=== PATIENT | male | born 1960 | race Caucasian/White ===

== ENCOUNTER 2019-05-22 11:29 | Observation (INO) | payer OTHER ==
[2019-05-22] MEDS ORDERED: SODIUM CHLORIDE 0.9% 1,000 ML IV STA (11:53)
[2019-05-22] MEDS ORDERED: SODIUM CHLORIDE 0.9% 1,000 ML with MVI, ADULT NO.4 WITH VIT K 10 ML, THIAMINE 100 MG, F... IV ONE ×4 (11:54)
--- NOTE | 2019-05-22 12:06 | ED ---
General Adult HPI - General Chief complaint: Alcohol Stated complaint: Alcohol Time Seen by Provider: 05/22/19 11:30 Source: EMS, RN notes reviewed Mode of arrival: EMS Limitations: no limitations - History of Present Illness Initial comments: This is a 59-year-old male who presents emergency Department who complains that he is intoxicated and he wants rehabilitation. Patient states he drove to [facility] and wanted to be seen. Patient did not have an appointment [facility] could not accommodate him but they could not let him drive home so they sent him to the hospital. Patient states she's unable to get a ride. Patient states he has no chest pain difficulty breathing or shortness of breath per patient denies headache patient denies numbness weakness. Patient denies any abdominal pain patient denies nausea vomiting or diarrhea. Patient states she does a past history of bypass surgery and does smoke. Patient denies any drug use. Patient denies any recent injury or trauma. - Related Data Home Medications Medication Instructions Recorded Confirmed Atorvastatin [Lipitor] 20 mg PO DAILY 05/22/19 05/22/19 Lisinopril [Zestril] 10 mg PO DAILY 05/22/19 05/22/19 Review of Systems ROS Statement: Those systems with pertinent positive or pertinent negative responses have been documented in the HPI. ROS Other: All systems not noted in ROS Statement are negative. Past Medical History Past Medical History: Unable to Obtain Additional Past Medical History / Comment(s): Pt intoxicated Past Surgical History: Unable to Obtain Additional Past Surgical History / Comment(s): Pt intoxicated Past Psychological History: Unable to Obtain, Anxiety, Depression Smoking Status: Current every day smoker Past Alcohol Use History: Heavy Past Drug Use History: None Reported General Exam - General Exam Comments Initial Comments: GENERAL: Patient is well-developed and well-nourished. Patient is nontoxic and well- hydrated and is in no acute distress. Patient appears intoxicated ENT: Neck is soft and supple. No significant lymphadenopathy is noted. Oropharynx is clear. Moist mucous membranes. Neck has full range of motion without eliciting any pain. EYES: The sclera were anicteric and conjunctiva were pink and moist. Extraocular movements were intact and pupils were equal round and reactive to light. Eyelids were unremarkable. PULMONARY: Unlabored respirations. Good breath sounds bilaterally. No audible rales rhonchi or wheezing was noted. CARDIOVASCULAR: There is a regular rate and rhythm without any murmurs gallops or rubs. ABDOMEN: Soft and nontender with normal bowel sounds. SKIN: Skin is clear with no lesions or rashes and otherwise unremarkable. NEUROLOGIC: Patient is alert and oriented x3. Cranial nerves II through XII are grossly intact. Motor and sensory are also intact. Normal speech, volume and content. Symmetrical smile. MUSCULOSKELETAL: Normal extremities with adequate strength and full range of motion. No lower extremity swelling or edema. No calf tenderness. LYMPHATICS: No significant lymphadenopathy is noted PSYCHIATRIC: Normal psychiatric evaluation. Limitations: no limitations Course Vital Signs 05/22/19 05/22/19 05/22/19 11:30 11:50 12:00 Temperature 98.0 F Pulse Rate 85 85 83 Respiratory 15 15 15 Rate Blood Pressure 111/73 111/73 111/73 O2 Sat by Pulse 95 95 96 Oximetry 05/22/19 05/22/19 05/22/19 12:30 13:00 13:30 Temperature Pulse Rate 87 89 84 Respiratory 14 16 14 Rate Blood Pressure 124/68 107/68 150/82 O2 Sat by Pulse 95 97 96 Oximetry Medical Decision Making - Medical Decision Making I spoke with Dr. Gilliland he agreed to admit the patient I admitted the patient wrote admitting orders - Lab Data Result diagrams: 05/22/19 12:38 05/22/19 12:38 Lab Results 05/22/19 05/22/19 05/22/19 Range/Units 12:38 12:38 12:38 WBC 5.5 (3.8-10.6) k/uL RBC 4.42 (4.30-5.90) m/uL Hgb 14.7 (13.0-17.5) gm/dL Hct 43.1 (39.0-53.0) % MCV 97.6 (80.0-100.0) fL MCH 33.2 (25.0-35.0) pg MCHC 34.1 (31.0-37.0) g/dL RDW 14.1 (11.5-15.5) % Plt Count 342 (150-450) k/uL Neutrophils % 58 % Lymphocytes % 30 % Monocytes % 7 % Eosinophils % 3 % Basophils % 1 % Neutrophils # 3.2 (1.3-7.7) k/uL Lymphocytes # 1.7 (1.0-4.8) k/uL Monocytes # 0.4 (0-1.0) k/uL Eosinophils # 0.2 (0-0.7) k/uL Basophils # 0.0 (0-0.2) k/uL PT 9.9 (9.0-12.0) sec INR 0.9 (<1.2) APTT 25.8 (22.0-30.0) sec Sodium 142 (137-145) mmol/L Potassium 4.4 (3.5-5.1) mmol/L Chloride 104 (98-107) mmol/L Carbon Dioxide 25 (22-30) mmol/L Anion Gap 13 mmol/L BUN 5 L (9-20) mg/dL Creatinine 0.59 L (0.66-1.25) mg/dL Est GFR (CKD-EPI)AfAm >90 (>60 ml/min/1.73 sqM) Est GFR (CKD-EPI)NonAf >90 (>60 ml/min/1.73 sqM) Glucose 101 H (74-99) mg/dL Calcium 9.1 (8.4-10.2) mg/dL Magnesium 2.2 (1.6-2.3) mg/dL Total Bilirubin 0.4 (0.2-1.3) mg/dL AST 55 (17-59) U/L ALT 43 (21-72) U/L Alkaline Phosphatase 74 (38-126) U/L Total Protein 8.1 (6.3-8.2) g/dL Albumin 4.5 (3.5-5.0) g/dL Serum Alcohol 233 H* mg/dL Disposition Clinical Impression: Alcoholic intoxication Disposition: ADMITTED IP TO THIS HOSP Referrals: None,Stated [Primary Care Provider] - 1-2 days Time of Disposition: 14:52
[2019-05-22 13:07] LABS: Basophils % (A) 1 %; Eosinophils # (A) 0.2 k/uL (0-0.7); Eosinophils % (A) 3 %; HCT 43.1 % (39.0-53.0); HGB 14.7 gm/dL (13.0-17.5); Lymphocytes # (A) 1.7 k/uL (1.0-4.8); Lymphocytes % (A) 30 %; MCH 33.2 pg (25.0-35.0); MCHC 34.1 g/dL (31.0-37.0); MCV 97.6 fL (80.0-100.0); Mean Platelet Volume 6.5; Monocytes # (A) 0.4 k/uL (0-1.0); Monocytes % (A) 7 %; Neutrophils # (A) 3.2 k/uL (1.3-7.7); Neutrophils % (A) 58 %; Platelet Count 342 k/uL (150-450); RBC 4.42 m/uL (4.30-5.90); RDW 14.1 % (11.5-15.5); WBC 5.5 k/uL (3.8-10.6)
[2019-05-22 13:13] LABS: INR 0.9 (<1.2); Partial Thromboplastin Time 25.8 sec (22.0-30.0); Prothrombin Time 9.9 sec (9.0-12.0)
[2019-05-22 13:20] LABS: ALT 43 U/L (21-72); AST 55 U/L (17-59); African American GFR (CKD) >90 (>60 ml/min/1.73 sqM); Albumin 4.5 g/dL (3.5-5.0); Alkaline Phosphatase 74 U/L (38-126); Anion Gap 13 mmol/L; Blood Urea Nitrogen 5 mg/dL (9-20); Calcium 9.1 mg/dL (8.4-10.2); Carbon Dioxide 25 mmol/L (22-30); Chloride 104 mmol/L (98-107); Glucose 101 mg/dL (74-99); Magnesium 2.2 mg/dL (1.6-2.3); Non-African American GFR(CKD) >90 (>60 ml/min/1.73 sqM); Potassium 4.4 mmol/L (3.5-5.1); Sodium 142 mmol/L (137-145); Total Bilirubin 0.4 mg/dL (0.2-1.3); Total Protein 8.1 g/dL (6.3-8.2)
[2019-05-22 13:31] LABS: Alcohol 233 mg/dL
[2019-05-22] MEDS ORDERED: LORazepam 2 MG/ML INJ IV PRN ×3 (16:07)
[2019-05-22] MEDS ORDERED: THIAMINE 100 MG/ML 2 ML VIAL IM STA (16:07)
[2019-05-22] MEDS ORDERED: HYDROcodone/APAP 5-325MG 1 EACH TAB PO PRN (16:08)
[2019-05-22] MEDS ORDERED: TEMAZEPAM 15 MG CAP PO PRN (16:08)
[2019-05-22] MEDS ORDERED: ALPRAZolam 0.25 MG TAB PO PRN (16:08)
[2019-05-22] MEDS: HEPARIN SODIUM,PORCINE 5,000 UNIT/ML 1 ML VIAL SQ SCH (20:31)
[2019-05-22] MEDS: NICOTINE 14MG/24HR PATCH TRANSDERM SCH (20:31)
--- NOTE | 2019-05-22 20:31 | XR ---
EXAMINATION TYPE: XR chest 1V portable DATE OF EXAM: 05/22/2019 COMPARISON: NONE HISTORY: Short of breath TECHNIQUE: Single frontal view of the chest is obtained. FINDINGS: There is no heart failure nor confluent pneumonic infiltrate. Thoracic aorta is atheromato us. There are sternal wires. There is some coarsening of interstitial markings. IMPRESSION: Mild pulmonary fibrotic changes. No heart failure.
--- NOTE | 2019-05-22 22:37 | HP ---
HISTORY AND PHYSICAL DATE OF SERVICE: 05/22/2019 CHIEF COMPLAINT: Alcohol intoxication. HISTORY OF PRESENT ILLNESS: This 59-year-old gentleman with a past medical history of hypertension, hyperlipidemia, history of restless legs syndrome, history of CAD, CABG, stent, being followed by a primary physician in the [place] area, apparently had a significant history of EtOH. The patient and his female friend apparently drove to [facility], but because of alcohol intake/intoxication, the patient was sent to [facility] for further evaluation and treatment. His alcohol was found to be 233. The patient was admitted for further evaluation and treatment. There is no history of any fever, rigor or chills. No history of headache, loss of consciousness, seizures at this time. PAST MEDICAL HISTORY: 1. History of hyperlipidemia. 2. Hypertension. 3. Restless leg syndrome. 4. CAD, CABG, stent. HOME MEDICATIONS: 1. Zestril 10 mg p.o. daily. 2. Lipitor 20 mg daily. ALLERGIES: NONE. FAMILY HISTORY: No history of heart disease or strokes in the family. SOCIAL HISTORY: History of smoking, heavy alcohol intake. REVIEW OF SYSTEMS: ENT: No diminished hearing. No diminished vision. CARDIOVASCULAR SYSTEM: As mentioned earlier. RESPIRATORY SYSTEM: As mentioned earlier. GI: No nausea, vomiting. : No dysuria or retention. NERVOUS SYSTEM: No numbness, weakness. ALLERGY/IMMUNOLOGY: No asthma, hayfever. MUSCULOSKELETAL: As mentioned earlier. HEMATOLOGY/ONCOLOGY: No history of anemia. ENDOCRINE: No history of diabetes, hypothyroidism. CONSTITUTIONAL: As mentioned earlier. DERMATOLOGY: Negative. RHEUMATOLOGY: Negative. PSYCHIATRY: As mentioned earlier. PHYSICAL EXAMINATION: Patient alert and oriented x3. Pulse 80, blood pressure 126/66, respirations 16, temperature 98.2, pulse ox 94% on room air. HEENT: Conjunctivae normal. NECK: No jugular venous distention. CARDIOVASCULAR SYSTEM: S1, S2 muffled. RESPIRATORY SYSTEM: Breath sounds diminished at the bases. A few scattered rhonchi and crackles. ABDOMEN: Soft. Non-tender. No mass palpable. LEGS: No edema. No swelling. NERVOUS SYSTEM: Minimal tremors present. Otherwise no focal deficit. SKIN: No ulcer, rash, bleeding. JOINTS: No active deforming arthropathy. LABS: CBC within normal limits. Glucose 101. Alcohol noted. ASSESSMENT: 1. Acute alcohol intoxication as well as early delirium tremens. 2. Hypertension. 3. Hyperlipidemia. 4. History of restless legs syndrome. 5. History of coronary artery disease, coronary artery bypass grafting. 6. Coronary artery disease, stent. 7. Anxiety, depression. 8. History of nicotine dependence. RECOMMENDATIONS AND DISCUSSION: In this 59-year-old gentleman who presented with multiple medical problems, we will monitor the patient closely, continue the current management, continue symptomatic treatment. Otherwise at this time I recommend [facility] protocol. Monitor closely. DT precautions and prophylaxis. Supplement vitamins. Guarded prognosis because of multiple complex medical issues. Further recommendations to follow. See orders for further details. Once the patient is stabilized, the patient will be discharged to [place]. F social media marketing analyst and Case Management to follow. JUANCARLOS / NEO: [id number] /
[2019-05-23] MEDS: ATORVASTATIN 20 MG TAB PO SCH (07:39)
[2019-05-23] MEDS: HEPARIN SODIUM,PORCINE 5,000 UNIT/ML 1 ML VIAL SQ SCH ×2 (07:39→20:22)
[2019-05-23] MEDS: PANTOPRAZOLE 40 MG/10 ML VIAL IVP SCH (07:39)
[2019-05-23] MEDS: THIAMINE 100 MG TAB PO SCH ×2 (07:39→15:30)
[2019-05-23] MEDS: LISINOPRIL 10 MG TAB PO SCH (07:39)
[2019-05-23] MEDS: NICOTINE 14MG/24HR PATCH TRANSDERM SCH (07:40)
[2019-05-23 08:01] LABS: Basophils # (A) 0.1 k/uL (0-0.2); Basophils % (A) 2 %; Eosinophils # (A) 0.2 k/uL (0-0.7); Eosinophils % (A) 4 %; HCT 43.9 % (39.0-53.0); HGB 14.6 gm/dL (13.0-17.5); Lymphocytes # (A) 1.3 k/uL (1.0-4.8); Lymphocytes % (A) 22 %; MCH 32.6 pg (25.0-35.0); MCHC 33.3 g/dL (31.0-37.0); MCV 97.9 fL (80.0-100.0); Mean Platelet Volume 6.7; Monocytes # (A) 0.4 k/uL (0-1.0); Monocytes % (A) 7 %; Neutrophils # (A) 3.6 k/uL (1.3-7.7); Neutrophils % (A) 64 %; Platelet Count 331 k/uL (150-450); RBC 4.48 m/uL (4.30-5.90); WBC 5.7 k/uL (3.8-10.6)
[2019-05-23 08:13] LABS: Appearance,Urine Clear (Clear); Bilirubin,Urine Negative (Negative); Blood,Urine Negative (Negative); Color,Urine Light Yellow; Glucose,Urine (UA) Negative (Negative); Ketones,Urine Negative (Negative); Leukocyte Esterase,Urine Negative (Negative); Nitrite,Urine Negative (Negative); PH, Urine 6.5 (5.0-8.0); Protein,Urine Negative (Negative); Specific Gravity,Urine 1.009 (1.001-1.035); Urobilinogen,Urine <2.0 mg/dL (<2.0)
[2019-05-23 08:18] LABS: African American GFR (CKD) >90 (>60 ml/min/1.73 sqM); Anion Gap 9 mmol/L; Blood Urea Nitrogen 9 mg/dL (9-20); Calcium 9.1 mg/dL (8.4-10.2); Carbon Dioxide 25 mmol/L (22-30); Chloride 106 mmol/L (98-107); Glucose 100 mg/dL (74-99); Non-African American GFR(CKD) >90 (>60 ml/min/1.73 sqM); Potassium 3.9 mmol/L (3.5-5.1); Sodium 140 mmol/L (137-145)
[2019-05-23] MEDS ORDERED: cloNIDine HCL 0.1 MG TAB PO PRN (15:55)
[2019-05-23] MEDS: cloNIDine HCL 0.1 MG TAB PO SCH ×2 (16:09→20:22)
--- NOTE | 2019-05-23 18:06 | PN ---
PROGRESS NOTE DATE OF SERVICE: 05/23/2019 This 59-year-old gentleman who was admitted with significant alcohol intoxication is being closely monitored. The patient also had features of early delirium tremens. No chest pain. No palpitations. No fever. Patient is slightly tremulous. PHYSICAL EXAMINATION: Alert and oriented x3. Pulse 86, blood pressure 172/81, respiration 18, temperature 98.4, pulse ox 97% on room air. HEENT: Conjunctivae normal. NECK: No jugular venous distention. CARDIOVASCULAR SYSTEM: S1, S2 muffled. RESPIRATORY SYSTEM: Breath sounds diminished at the bases. Scattered rhonchi and crackles. ABDOMEN: Soft, non-tender. LEGS: No edema. No swelling. NERVOUS SYSTEM: No focal deficit. LABS: CBC within normal limits. Glucose 100. ASSESSMENT: 1. Acute alcohol intoxication as well as early delirium tremens. 2. Change in mental status, acute metabolic encephalopathy, multifactorial. 3. Hypertension. 4. Hyperlipidemia. 5. History of restless legs syndrome. 6. History of coronary artery disease, coronary artery bypass grafting. 7. Coronary artery disease, stent. 8. Anxiety, depression. 9. History of nicotine dependence. RECOMMENDATIONS AND DISCUSSION: I recommend to continue current medications, continue with the monitoring, symptomatic treatment. Continue [facility] protocol. Otherwise, clonidine. Continue the rest of the medications. shipping manager and social studies teacher to arrange for [facility] when stable within the next 24 hours, possibly. Further recommendations to follow. MMMEDL / IJN: [id number] /
[2019-05-24 05:04] VITALS: BP 158/91; PULSE 74; RESP 17; TEMP 97.9
[2019-05-24] MEDS: THIAMINE 100 MG TAB PO SCH (09:06)
[2019-05-24] MEDS: NICOTINE 14MG/24HR PATCH TRANSDERM SCH (09:06)
[2019-05-24] MEDS: LISINOPRIL 10 MG TAB PO SCH (09:06)
[2019-05-24] MEDS: HEPARIN SODIUM,PORCINE 5,000 UNIT/ML 1 ML VIAL SQ SCH (09:06)
[2019-05-24] MEDS: cloNIDine HCL 0.1 MG TAB PO SCH (09:06)
[2019-05-24] MEDS: ATORVASTATIN 20 MG TAB PO SCH (09:06)
[2019-05-24] MEDS: PANTOPRAZOLE 40 MG/10 ML VIAL IVP SCH (09:06)
[2019-05-24 09:43] LABS: African American GFR (CKD) >90 (>60 ml/min/1.73 sqM); Anion Gap 10 mmol/L; Blood Urea Nitrogen 9 mg/dL (9-20); Calcium 9.4 mg/dL (8.4-10.2); Carbon Dioxide 24 mmol/L (22-30); Chloride 105 mmol/L (98-107); Glucose 160 mg/dL (74-99); Non-African American GFR(CKD) >90 (>60 ml/min/1.73 sqM); Sodium 139 mmol/L (137-145)
[2019-05-24 09:45] LABS: Basophils % (A) 1 %; Eosinophils # (A) 0.2 k/uL (0-0.7); Eosinophils % (A) 4 %; HCT 44.6 % (39.0-53.0); HGB 14.8 gm/dL (13.0-17.5); Lymphocytes # (A) 1.3 k/uL (1.0-4.8); Lymphocytes % (A) 25 %; MCH 32.8 pg (25.0-35.0); MCHC 33.3 g/dL (31.0-37.0); MCV 98.4 fL (80.0-100.0); Mean Platelet Volume 7.3; Monocytes # (A) 0.2 k/uL (0-1.0); Monocytes % (A) 4 %; Neutrophils # (A) 3.3 k/uL (1.3-7.7); Neutrophils % (A) 65 %; Platelet Count 324 k/uL (150-450); RBC 4.53 m/uL (4.30-5.90); RDW 15.2 % (11.5-15.5); WBC 5.1 k/uL (3.8-10.6)
--- NOTE | 2019-05-25 03:06 | DS ---
DISCHARGE SUMMARY DATE OF SERVICE: 05/24/2019. FINAL DIAGNOSES: 1. Acute alcohol intoxication as well as early delirium tremens. 2. Change in mental status secondary to acute metabolic encephalopathy multifactorial. 3. Hypertension. 4. Hyperlipidemia. 5. History of restless legs syndrome. 6. History of coronary artery disease, coronary artery bypass grafting. 7. History of coronary artery disease, stent. 8. History of anxiety, depression. 9. History of nicotine dependence. DISCHARGE DISPOSITION: The patient being discharged in stable condition with guarded prognosis. HISTORY OF PRESENT ILLNESS: This 59-year-old gentleman with a past medical history of multiple medical problems, was admitted with acute alcohol intoxication as well as delirium tremens. The patient was treated symptomatically. Patient improved significantly. Patient was supposed to go to [facility] apparently. He and his friend showed up at [facility] with alcohol level more than 200 at the time of admission. On exam, vitals are stable. Cardiovascular: S1, S2. Abdomen soft. Nervous System: No focal deficits. DISCHARGE ADVICE AND MEDICATIONS: 1. Diet is cardiac diet. 2. Activity limited until followup. 3. Followup with primary physician in 1-2 days. 4. Stop alcohol. 5. Rehab. DISCHARGE MEDICATIONS: 1. Lipitor 20 mg. 2. Zestril 10 mg. 3. Catapres 0.1 p.o. t.i.d. 4. Habitrol 14 daily. To attend AA meetings and alcohol rehab. JUANCARLOS / NEO: [id number] /
[2019-05-25] MEDS ORDERED: PANTOPRAZOLE 40 MG TABLET PO SCH (07:30)
== END 2019-05-24 13:22 | disposition home or self-care (01) ==
LOC: EC 11:29 → 4MS4W 14:52
PROVIDERS: ADMIT Hospitalist; ATTEND Hospitalist
DX: F10.221 Alcohol dependence with intoxication delirium (principal); G93.41 Metabolic encephalopathy; I10 Essential (primary) hypertension; I25.10 Atherosclerotic heart disease of native coronary artery without angina pectoris; F41.9 Anxiety disorder, unspecified; F32.9 Major depressive disorder, single episode, unspecified; G25.81 Restless legs syndrome; Y90.7 Blood alcohol level of 200-239 mg/100 ml; E78.5 Hyperlipidemia, unspecified; F17.200 Nicotine dependence, unspecified, uncomplicated; Z79.899 Other long term (current) drug therapy; Z95.5 Presence of coronary angioplasty implant and graft; Z95.1 Presence of aortocoronary bypass graft
CPT/HCPCS: 96366 ×3; 96372 ×4; 96375; 96365; 99285; 36415; 80053; 80048 ×2; 83735; 85025 ×3; 85610; 85730; 81003; 71045; G0378 ×3; G0480; S4990 ×2; J2060; J1644 ×3; J3411; C9113 ×2; 80320

== ENCOUNTER 2022-03-25 14:32 | Inpatient (IN) | payer MEDICARE, OTHER ==
[2022-03-25] MEDS ORDERED: ASPIRIN 81 MG PO STA (14:55)
[2022-03-25] MEDS ORDERED: NITROGLYCERIN OINT 1 INCH/GM PACKET TOPICAL STA (14:55)
[2022-03-25] MEDS ORDERED: SODIUM CHLORIDE 0.9% 1,000 ML IV STA (14:55)
[2022-03-25 15:15] LABS: Basophils % (A) 1 %; Eosinophils # (A) 0.1 k/uL (0-0.7); Eosinophils % (A) 2 %; HCT 41.7 % (39.0-53.0); HGB 14.4 gm/dL (13.0-17.5); Lymphocytes # (A) 1.5 k/uL (1.0-4.8); Lymphocytes % (A) 33 %; MCH 34.4 pg (25.0-35.0); MCHC 34.5 g/dL (31.0-37.0); MCV 99.7 fL (80.0-100.0); Mean Platelet Volume 8.3; Monocytes # (A) 0.2 k/uL (0-1.0); Monocytes % (A) 4 %; Neutrophils # (A) 2.7 k/uL (1.3-7.7); Neutrophils % (A) 60 %; Platelet Count 106 k/uL (150-450); RBC 4.19 m/uL (4.30-5.90); RDW 12.9 % (11.5-15.5); WBC 4.5 k/uL (3.8-10.6)
[2022-03-25 15:20] LABS: Partial Thromboplastin Time 25.6 sec (22.0-30.0); Prothrombin Time 11.3 sec (9.0-12.0)
[2022-03-25 15:25] LABS: ALT 100 U/L (4-49); AST 152 U/L (17-59); African American GFR (CKD) >90 (>60 ml/min/1.73 sqM); Albumin 3.9 g/dL (3.5-5.0); Alkaline Phosphatase 98 U/L (38-126); Anion Gap 13 mmol/L; Blood Urea Nitrogen 3 mg/dL (9-20); Calcium 8.2 mg/dL (8.4-10.2); Carbon Dioxide 21 mmol/L (22-30); Chloride 106 mmol/L (98-107); Glucose 153 mg/dL (74-99); Magnesium 1.6 mg/dL (1.6-2.3); Non-African American GFR(CKD) >90 (>60 ml/min/1.73 sqM); Potassium 2.9 mmol/L (3.5-5.1); Sodium 140 mmol/L (137-145); Total Bilirubin 0.7 mg/dL (0.2-1.3); Total Protein 6.8 g/dL (6.3-8.2)
--- NOTE | 2022-03-25 15:25 | ED ---
General Adult HPI - General Chief complaint: Chest Pain Stated complaint: chest pain Time Seen by Provider: 03/25/22 14:45 Source: patient, RN notes reviewed, old records reviewed Mode of arrival: ambulatory Limitations: no limitations - History of Present Illness Initial comments: This is a 62-year-old male who presents emergency department with chest pains intermittently 4 days. Patient states she's no colicky was going to [place] to go to into rehab however on the way [place] states she was drinking. Patient got there complained about chest pain and EMS was called. EMS states that the patient had a heart rate in the 161 time they gave him a liter of fluid and heart rate came back down to under 100. Patient states he has no chest pain currently. Patient did have shortness of breath earlier with the chest pain. Patient denies any diaphoretic episodes. Patient denies any nausea vomiting. Patient denies any abdominal pain. Patient denies any recent injury or trauma. - Related Data Home Medications Medication Instructions Recorded Confirmed Atorvastatin [Lipitor] 20 mg PO DAILY 05/22/19 05/22/19 lisinopriL [Zestril] 10 mg PO DAILY 05/22/19 05/22/19 Previous Rx's Medication Instructions Recorded Nicotine 14Mg/24Hr Patch [Habitrol] 1 patch TRANSDERM DAILY #30 patch 05/24/19 cloNIDine HCL [Catapres] 0.1 mg PO TID #90 tab 05/24/19 Allergies Allergy/AdvReac Type Severity Reaction Status Date / Time No Known Allergies Allergy Verified 03/25/22 14:39 Review of Systems ROS Statement: Those systems with pertinent positive or pertinent negative responses have been documented in the HPI. ROS Other: All systems not noted in ROS Statement are negative. Past Medical History Past Medical History: Hyperlipidemia, Hypertension Additional Past Medical History / Comment(s): RLS History of Any Multi-Drug Resistant Organisms: None Reported Past Surgical History: Coronary Bypass/CABG, Heart Catheterization With Stent Additional Past Surgical History / Comment(s): Pt intoxicated Past Anesthesia/Blood Transfusion Reactions: No Reported Reaction Date of Last Stent Placement:: 2017 Past Psychological History: Unable to Obtain, Anxiety, Depression Smoking Status: Current every day smoker Past Alcohol Use History: Heavy Past Drug Use History: Marijuana General Exam - General Exam Comments Initial Comments: GENERAL: Patient is well-developed and well-nourished. Patient is nontoxic and well- hydrated and is in patient does appear intoxicated no acute distress. ENT: Neck is soft and supple. No significant lymphadenopathy is noted. Oropharynx is clear. Moist mucous membranes. Neck has full range of motion without eliciting any pain. EYES: The sclera were anicteric and conjunctiva were pink and moist. Extraocular movements were intact and pupils were equal round and reactive to light. Eyelids were unremarkable. PULMONARY: Unlabored respirations. Good breath sounds bilaterally. No audible rales rhonchi or wheezing was noted. CARDIOVASCULAR: Slightly tachycardic with an irregular rate. ABDOMEN: Soft and nontender with normal bowel sounds. SKIN: Skin is clear with no lesions or rashes and otherwise unremarkable. NEUROLOGIC: Patient is alert and oriented x3. Cranial nerves II through XII are grossly intact. Motor and sensory are also intact. Normal speech, volume and content. Symmetrical smile. MUSCULOSKELETAL: Normal extremities with adequate strength and full range of motion. 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 Patient's EKG shows no ST segment elevation or depression. Chest x-ray shows no acute abnormality. Patient's troponin was elevated and patient's alcohol was 291. I spoke with some physicians agreed to admit the patient admitted the patient wrote admitting orders I consulted cardiology. She was also placed on the [facility] protocol. - Lab Data Result diagrams: 03/25/22 14:58 03/25/22 14:58 Lab Results 03/25/22 03/25/22 03/25/22 Range/Units 14:58 14:58 14:58 WBC 4.5 (3.8-10.6) k/uL RBC 4.19 L (4.30-5.90) m/uL Hgb 14.4 (13.0-17.5) gm/dL Hct 41.7 (39.0-53.0) % MCV 99.7 (80.0-100.0) fL MCH 34.4 (25.0-35.0) pg MCHC 34.5 (31.0-37.0) g/dL RDW 12.9 (11.5-15.5) % Plt Count 106 L (150-450) k/uL MPV 8.3 Neutrophils % 60 % Lymphocytes % 33 % Monocytes % 4 % Eosinophils % 2 % Basophils % 1 % Neutrophils # 2.7 (1.3-7.7) k/uL Lymphocytes # 1.5 (1.0-4.8) k/uL Monocytes # 0.2 (0-1.0) k/uL Eosinophils # 0.1 (0-0.7) k/uL Basophils # 0.0 (0-0.2) k/uL PT 11.3 (9.0-12.0) sec INR 1.0 (<1.2) APTT 25.6 (22.0-30.0) sec Sodium 140 (137-145) mmol/L Potassium 2.9 L (3.5-5.1) mmol/L Chloride 106 (98-107) mmol/L Carbon Dioxide 21 L (22-30) mmol/L Anion Gap 13 mmol/L BUN 3 L (9-20) mg/dL Creatinine 0.71 (0.66-1.25) mg/dL Est GFR (CKD-EPI)AfAm >90 (>60 ml/min/1.73 sqM) Est GFR (CKD-EPI)NonAf >90 (>60 ml/min/1.73 sqM) Glucose 153 H (74-99) mg/dL Calcium 8.2 L (8.4-10.2) mg/dL Magnesium 1.6 (1.6-2.3) mg/dL Total Bilirubin 0.7 (0.2-1.3) mg/dL AST 152 H (17-59) U/L ALT 100 H (4-49) U/L Alkaline Phosphatase 98 (38-126) U/L Troponin I (0.000-0.034) ng/mL Total Protein 6.8 (6.3-8.2) g/dL Albumin 3.9 (3.5-5.0) g/dL Serum Alcohol 291 H* mg/dL 03/25/22 Range/Units 14:58 WBC (3.8-10.6) k/uL RBC (4.30-5.90) m/uL Hgb (13.0-17.5) gm/dL Hct (39.0-53.0) % MCV (80.0-100.0) fL MCH (25.0-35.0) pg MCHC (31.0-37.0) g/dL RDW (11.5-15.5) % Plt Count (150-450) k/uL MPV Neutrophils % % Lymphocytes % % Monocytes % % Eosinophils % % Basophils % % Neutrophils # (1.3-7.7) k/uL Lymphocytes # (1.0-4.8) k/uL Monocytes # (0-1.0) k/uL Eosinophils # (0-0.7) k/uL Basophils # (0-0.2) k/uL PT (9.0-12.0) sec INR (<1.2) APTT (22.0-30.0) sec Sodium (137-145) mmol/L Potassium (3.5-5.1) mmol/L Chloride (98-107) mmol/L Carbon Dioxide (22-30) mmol/L Anion Gap mmol/L BUN (9-20) mg/dL Creatinine (0.66-1.25) mg/dL Est GFR (CKD-EPI)AfAm (>60 ml/min/1.73 sqM) Est GFR (CKD-EPI)NonAf (>60 ml/min/1.73 sqM) Glucose (74-99) mg/dL Calcium (8.4-10.2) mg/dL Magnesium (1.6-2.3) mg/dL Total Bilirubin (0.2-1.3) mg/dL AST (17-59) U/L ALT (4-49) U/L Alkaline Phosphatase (38-126) U/L Troponin I 0.085 H* (0.000-0.034) ng/mL Total Protein (6.3-8.2) g/dL Albumin (3.5-5.0) g/dL Serum Alcohol mg/dL Disposition Clinical Impression: Chest pain, Elevated troponin, Alcohol intoxication Disposition: ADMITTED IP TO THIS [facility] Referrals: None,Stated [Primary Care Provider] - 1-2 days Time of Disposition: 16:05
[2022-03-25 15:37] LABS: Alcohol 291 mg/dL
--- NOTE | 2022-03-25 15:51 | XR ---
EXAMINATION TYPE: XR chest 2V DATE OF EXAM: 03/25/2022 COMPARISON: Chest x-ray 05/22/2019 HISTORY: Chest pain TECHNIQUE: Frontal and lateral views of the chest are obtained. FINDINGS: There is no focal air space opacity, pleural effusion, or pneumothorax seen. The cardiac silhouette size is within normal limits. Patient is post median sternotomy. Aorta is dense. There are overlying leads. The osseous structures are intact. IMPRESSION: No acute cardiopulmonary process.
[2022-03-25] MEDS ORDERED: NITROGLYCERIN SL TABS 0.4 MG TAB SUBLINGUAL PRN (16:05)
[2022-03-25] MEDS ORDERED: LORazepam 2 MG/ML INJ IV PRN ×3 (16:08)
[2022-03-25] MEDS ORDERED: THIAMINE 100 MG/ML 2 ML VIAL IM STA (16:08)
[2022-03-25] MEDS ORDERED: LORazepam 1 MG TAB PO PRN ×2 (16:12)
[2022-03-25] MEDS ORDERED: POTASSIUM CHLORIDE ER 20 MEQ TAB.ER PO STA (16:25)
--- NOTE | 2022-03-25 16:26 | P.HPIM ---
History of Present Illness H&P Date: 03/25/22 History of Presenting Illness: Patient is a 62-year-old male with a past medical history of CAD status post CABG x4 in 2013, hypertension, hyperlipidemia, alcoholism drinking a reported 4- 5 "tall boys" per day, nicotine dependence, and cannabis use. Patient presented to the emergency department with a chief complaint of intermittent chest pain 4 days and alcohol intoxication. Patient was reportedly going to [place] for rehab as he decided he wanted to quit drinking but was found to be intoxicated and sent to the emergency department for detox and EMS was called for transfer to our facility. EMS reports upon their arrival they found the pat ient with a heart rate of 160 bpm. The reportedly gave the patient a 1 L bolus of fluid resulting in significant improvement of his heart rate back down to 100. Upon arrival to the emergency department, EKG was completed revealing sinus tachycardia with heart rate of 108 bpm. CBC unremarkable with the exception of thrombocytopenia with platelet count of 106. CMP revealing hypokalemia with potassium of 2.9, hypomagnesemia with magnesium of 1.6, and elevated liver enzymes with AST of 152 and ALT of 100. Troponin elevated at 0.085 and serum alcohol level of 291. Patient admitted under our services with consultation to cardiology. Patient was seen and fully evaluated at the bedside. Patient reports pain intermittently to left anterior chest described as a sharp sensation. He denies radiation of this pain or any associated factors including dizziness, lightheadedness, diaphoresis, nausea, vomiting, palpitations, shortness of breath, exertional dyspnea, or experiencing any numbness/tingling/weakness/swelling in his extremities. Patient does report to drinking daily at least 4-5 tall boys per day. In addition patient reports smoking approximately 1/4-1/2 pack of cigarettes per day as well as occasional marijuana use. Patient reports that he had his cardiac bypass in 2013 at [facility] and he was supposed to be taking medication for his blood pressure and cholesterol, however he has not followed up with a sheeting puller or a PCP. Review of systems: Pertinent positives and negatives as discussed in HPI, a complete review of systems was performed and all other systems are negative. Physical exam: Vital signs reviewed and stable. General: Nontoxic, no distress and appears stated age. Derm: Skin warm and dry, normal coloration for ethnicity. Head: Atraumatic, normocephalic and symmetric. Eyes: EOMs intact, no lid lag, and anicteric sclera Mouth: no lip lesions, mucus membranes moist Cardiovascular: Tachycardic rate with a regular rhythm with normal S1S2, systolic murmur, positive posterior tibial pulses bilaterally, and cap refill < 2 seconds. Lungs: Respirations even, regular, and unlabored on room air. Lungs diminished with mild soft expiratory wheezes, no crackles, rales, or rhonchi noted. Abdominal: soft, nontender to palpation, no guarding, no appreciable organomegaly Ext: ROM intact. No gross muscle atrophy, no edema, no contractures Neuro: Speech clear, face symmetrical and CN II-XII grossly intact with no noted focal neuro deficits Psych: Alert and oriented to person, place, time, and situation. Appropriate and pleasant affect. Assessment and Plan of Care: Chest pain, rule out acute coronary event Elevated troponins, possible demand ischemia secondary to tachycardic rate Tachycardia History of CAD status post CABG Hypertension Hyperlipidemia -Cardiology consult, appreciate further recommendations -Heparin infusion -Telemetry monitoring -Trend troponins -Cardiac diet, NPO at midnight -Started patient on daily Aspirin, atorvastatin, and metoprolol -Lipid profile with a.m. labs. -Echocardiogram Alcohol intoxication an active alcoholic -CIWA Protocol with symptom triggered medication management with benzod iazepines. -Banana bag 1 dose followed by continuous IV hydration. -Thiamine 100 mg twice a day -Multivitamin daily -Folate 1 mg daily -Seizure, fall, aspiration, and elopement precautions in place. -Urine drug screen -Continued close monitoring of electrolytes and replace as needed. -Telemetry monitoring. Hypomagnesemia Hypokalemia -Replaced. We will continue to monitor with repeat a.m. labs. Nicotine dependence -Recommend smoking cessation. The patient is admitted with an anticipated greater than 2 midnight stay for evaluation of Elevated troponins, chest pain CODE STATUS: Full code DVT prophylaxis: Heparin Discussed with: patient and RN Anticipated discharge date: Clinical course to determine Anticipated discharge place: Home A total of 43 minutes was spent on the care of this complex patient more than 50% of the time was spent in counseling and care coordination. Past Medical History Past Medical History: Hyperlipidemia, Hypertension Additional Past Medical History / Comment(s): RLS History of Any Multi-Drug Resistant Organisms: None Reported Past Surgical History: Coronary Bypass/CABG, Heart Catheterization With Stent Additional Past Surgical History / Comment(s): Pt intoxicated Past Anesthesia/Blood Transfusion Reactions: No Reported Reaction Date of Last Stent Placement:: 2017 Past Psychological History: Unable to Obtain, Anxiety, Depression Smoking Status: Current every day smoker Past Alcohol Use History: Heavy Past Drug Use History: Marijuana Medications and Allergies Home Medications Medication Instructions Recorded Confirmed Type No Known Home Medications 03/25/22 03/25/22 History Allergies Allergy/AdvReac Type Severity Reaction Status Date / Time No Known Allergies Allergy Verified 03/25/22 16:27 Physical Exam Vitals: Vital Signs Temp Pulse Pulse Resp BP Pulse Ox 03/25/22 14:51 110 H 03/25/22 14:37 98 F 91 20 109/80 98 Intake and Output 03/25/22 03/25/22 03/25/22 06:59 14:59 22:59 Other: Weight 79.379 kg Results CBC & Chem 7: 03/25/22 14:58 03/25/22 14:58 Labs: Abnormal Lab Results - Last 24 Hours (Table) 03/25/22 03/25/22 03/25/22 Range/Units 14:58 14:58 14:58 RBC 4.19 L (4.30-5.90) m/uL Plt Count 106 L (150-450) k/uL Potassium 2.9 L (3.5-5.1) mmol/L Carbon Dioxide 21 L (22-30) mmol/L BUN 3 L (9-20) mg/dL Glucose 153 H (74-99) mg/dL Calcium 8.2 L (8.4-10.2) mg/dL AST 152 H (17-59) U/L ALT 100 H (4-49) U/L Troponin I 0.085 H* (0.000-0.034) ng/mL Serum Alcohol 291 H* mg/dL
[2022-03-25] MEDS: ATORVASTATIN 80 MG TAB PO SCH (17:44)
[2022-03-25] MEDS: NITROGLYCERIN OINT 1 INCH/GM PACKET TOPICAL SCH (17:45)
[2022-03-25] MEDS: MAGNESIUM SULFATE-D5W PMX 1 GM in DEXTROSE/WATER 1 100ML.BAG IVPB SCH ×2 (17:46→18:35)
[2022-03-25] MEDS ORDERED: HEPARIN SODIUM 1,000 UN/ML (10ML VL) IV ONE (18:55)
[2022-03-25] MEDS ORDERED: HEPARIN SODIUM 1,000 UN/ML (10ML VL) IV PRN (18:55)
[2022-03-25 20:20] LABS: Prothrombin Time 11.1 sec (9.0-12.0)
[2022-03-25] MEDS: HEPARIN SOD,PORK IN 0.45% NACL 25,000 UNIT in 0.45% NACL 1 250ML.BAG IV SCH (20:47)
[2022-03-25] MEDS ORDERED: METOPROLOL TARTRATE 25 MG TAB PO SCH (21:00)
[2022-03-26] MEDS ORDERED: HEPARIN SODIUM,PORCINE/PF 5,000 UNIT/0.5 ML SYRINGE SQ SCH
[2022-03-26] MEDS: NITROGLYCERIN OINT 1 INCH/GM PACKET TOPICAL SCH ×2 (00:22→06:56)
[2022-03-26 04:25] LABS: HCT 42.5 % (39.0-53.0); HGB 14.5 gm/dL (13.0-17.5); MCH 34.1 pg (25.0-35.0); MCHC 34.1 g/dL (31.0-37.0); MCV 100.1 fL (80.0-100.0); Mean Platelet Volume 8.7; RBC 4.24 m/uL (4.30-5.90); RDW 12.9 % (11.5-15.5); WBC 6.5 k/uL (3.8-10.6)
[2022-03-26 04:44] LABS: ALT 109 U/L (4-49); AST 171 U/L (17-59); African American GFR (CKD) >90 (>60 ml/min/1.73 sqM); Albumin 3.9 g/dL (3.5-5.0); Alkaline Phosphatase 114 U/L (38-126); Anion Gap 8 mmol/L; Blood Urea Nitrogen 2 mg/dL (9-20); Calcium 8.1 mg/dL (8.4-10.2); Carbon Dioxide 26 mmol/L (22-30); Chloride 104 mmol/L (98-107); Glucose 99 mg/dL (74-99); Magnesium 1.7 mg/dL (1.6-2.3); Non-African American GFR(CKD) >90 (>60 ml/min/1.73 sqM); Potassium 3.2 mmol/L (3.5-5.1); Sodium 138 mmol/L (137-145); Total Bilirubin 1.3 mg/dL (0.2-1.3); Total Protein 6.8 g/dL (6.3-8.2)
[2022-03-26 05:10] LABS: Platelet Count 88 k/uL (150-450)
[2022-03-26] MEDS: THIAMINE 100 MG TAB PO SCH ×2 (06:55→17:03)
--- NOTE | 2022-03-26 07:17 | P.CRDCN ---
History of Present Illness History of present illness: HISTORY OF PRESENTING ILLNESS Patient is a pleasant 62-year-old male with history of CAD status post CABG 4 in 2013, hypertension, hyperlipidemia, alcoholism, tobacco abuse, marijuana use who presents secondary chest pains. He states he went to [place] rehab to detox from drinking however was found to be intoxicated and therefore sent to ER for detox. On transfer to the ER EMS found patient to be tachycardiac with heart rate 160 bpm and reportedly gave IV fluid bolus with improvement in heart rate down to the 100 range. EKG and emergency department showed new onset Afib and no strips from EMS. He has been noncompliant and has not been following with a PCP or self defense instructor. He denies any history of atrial fibrillation in the past. He denies any clear correlation of his chest pains with exertion however does get very short of breath with exertion. He admits he is mainly limited by "blockages in my legs ". He does get some medications from some Dr. however unclear who is an unclear what medications he takes. He denies any history of cardiomyopathy in the past. He is starting to undergo withdrawal and is somewhat shaky currently. He does admit to feelings of palpitations at times and will get more short of breath when he does have palpitations. Blood work shows hemoglobin 14.4, platelets 106, potassium 2.9, creatinine 0.9, troponins 0.08, 0.09, 0.09, serum alcohol 291, AST 152, ALT 100. EKG shows atrial fibrillation with mild RVR heart rate 108 with normal axis, Q waves V1 and V2, nonspecific ST depressions in the inferior leads. REVIEW OF SYSTEMS At the time of my exam: CONSTITUTIONAL: Denies fever or chills. CARDIOVASCULAR: +chest pain, +shortness of breath, no orthopnea, PND +palpitations. RESPIRATORY: Denies cough. GASTROINTESTINAL: Denies abdominal pain, diarrhea, constipation, nausea or vomiting. MUSCULOSKELETAL: Denies myalgias. NEUROLOGIC: Denies numbness, tingling or weakness. ENDOCRINE: Denies fatigue, weight change, polydipsia or polyurina. GENITOURINARY: Denies burning, hematuria or urgency with micturation. HEMATOLOGIC: Denies history of anemia or bleeding. PHYSICAL EXAMINATION Vital signs reviewed. CONSTITUTIONAL: No apparent distress, chronically ill appearing HEENT: Head is normocephalic. Pupils are equal, round. Sclerae anicteric. Mucous membranes of the mouth are moist. No JVD. No carotid bruit. CHEST EXAMINATION: Lungs are clear to auscultation. No chest wall tenderness is noted on palpation or with deep breathing. HEART EXAMINATION: Irregularly irregular rate and rhythm. S1, S2 heard. +3/6 systolic murmur,no gallops or rub. ABDOMEN: Soft, nontender. Positive bowel sounds. EXTREMITIES: 2+ peripheral pulses, no lower extremity edema and no calf tenderness. NEUROLOGIC EXAMINATION: Patient is awake, alert and oriented x3. ASSESSMENT 1. Episodes of chest pain not clearly associated with exertion. Unclear angina versus other 2. New-onset atrial fibrillation with mild RVR 3. Coronary artery disease with prior history of CABG 4. NSTEMI, unclear type II mechanism from RVR, alcohol intoxication or new type I etiology 5. Alcoholism beginning to go through withdrawals 6. Hypertension 7. Medical noncompliance 8. Tobacco abuse, marijuana use 9. Elevated AST/ALT from alcohol use 10. Systolic murmur 11. PAD with claudication symptoms PLAN Patient with a number of medical problems and unfortunately has had poor follow- up. Unclear what medications he has been taking. We will attempt to uptitrate beta meg as tolerated for both A. fib with RVR as well as CAD. Patient's chest pain may be related to episodes of A. fib with RVR with reported heart rate up in the 160s previously noted by EMS. A. fib likely exacerbated by excessive alcohol use. Unclear if patient will be a good interventional candidate with poor compliance with medications. Attempt to treat medically. Check 2-D echo. Possible transition to NOAC or Coumadin for anticoagulation for his A. fib. Does not appear to have any esophageal varices or history of GI bleed. Patient will likely undergo withdrawals which will complicate his care. Prognosis guarded. Past Medical History Past Medical History: Hyperlipidemia, Hypertension Additional Past Medical History / Comment(s): RLS History of Any Multi-Drug Resistant Organisms: None Reported Past Surgical History: Coronary Bypass/CABG, Heart Catheterization With Stent Additional Past Surgical History / Comment(s): Pt intoxicated Past Anesthesia/Blood Transfusion Reactions: No Reported Reaction Date of Last Stent Placement:: 2017 Past Psychological History: Unable to Obtain, Anxiety, Depression Smoking Status: Current every day smoker Past Alcohol Use History: Heavy Past Drug Use History: Marijuana Medications and Allergies Home Medications Medication Instructions Recorded Confirmed Type No Known Home Medications 03/25/22 03/25/22 History Allergies Allergy/AdvReac Type Severity Reaction Status Date / Time No Known Allergies Allergy Verified 03/25/22 16:27 Physical Exam Vitals: Vital Signs Temp Pulse Pulse Resp BP BP Pulse Ox 03/26/22 03:56 98.8 F 71 12 160/97 93 L 03/26/22 00:00 98.7 F 92 12 150/93 95 03/25/22 20:00 98.7 F 94 16 143/87 97 03/25/22 17:39 101 H 16 125/85 97 03/25/22 14:51 110 H 03/25/22 14:37 98 F 91 20 109/80 98 Intake and Output 03/25/22 03/26/22 03/26/22 22:59 06:59 14:59 Output Total 2 Balance -2 Output: Stool 2 Other: Voiding Method Toilet Toilet Urinal Urinal # Voids 2 # Bowel Movements 1 Weight 79.379 kg Results 03/26/22 03:45 03/26/22 03:45 Cardiac Enzymes 03/25/22 03/25/22 03/25/22 Range/Units 14:58 14:58 16:37 AST 152 H (17-59) U/L Troponin I 0.085 H* 0.094 H* (0.000-0.034) ng/mL 03/25/22 03/26/22 Range/Units 18:38 03:45 AST 171 H (17-59) U/L Troponin I 0.097 H* (0.000-0.034) ng/mL Coagulation 03/25/22 03/25/22 03/26/22 Range/Units 14:58 19:37 03:45 PT 11.3 11.1 (9.0-12.0) sec APTT 25.6 26.0 52.0 H (22.0-30.0) sec CBC 03/25/22 03/26/22 Range/Units 14:58 03:45 WBC 4.5 6.5 (3.8-10.6) k/uL RBC 4.19 L 4.24 L (4.30-5.90) m/uL Hgb 14.4 14.5 (13.0-17.5) gm/dL Hct 41.7 42.5 (39.0-53.0) % Plt Count 106 L 88 L (150-450) k/uL Comprehensive Metabolic Panel 03/25/22 03/26/22 Range/Units 14:58 03:45 Sodium 140 138 (137-145) mmol/L Potassium 2.9 L 3.2 L (3.5-5.1) mmol/L Chloride 106 104 (98-107) mmol/L Carbon Dioxide 21 L 26 (22-30) mmol/L BUN 3 L 2 L (9-20) mg/dL Creatinine 0.71 0.54 L (0.66-1.25) mg/dL Glucose 153 H 99 (74-99) mg/dL Calcium 8.2 L 8.1 L (8.4-10.2) mg/dL AST 152 H 171 H (17-59) U/L ALT 100 H 109 H (4-49) U/L Alkaline Phosphatase 98 114 (38-126) U/L Total Protein 6.8 6.8 (6.3-8.2) g/dL Albumin 3.9 3.9 (3.5-5.0) g/dL Current Medications Generic Name Dose Route Start Last Admin Trade Name Freq PRN Reason Stop Dose Admin Aspirin 325 mg 03/26/22 09:00 Aspirin 325 Mg Tab PO DAILY [facility] Atorvastatin Calcium 80 mg 03/25/22 17:30 03/25/22 17:44 Atorvastatin 80 Mg Tab PO 80 mg DAILY [facility] Administration Folic Acid 1 mg 03/26/22 09:00 Folic Acid 1 Mg Tab PO DAILY [facility] Heparin Sodium (Porcine) 0 unit 03/25/22 18:55 Heparin Sodium 1,000 Un/Ml (10ml Vl) IV PER PROTOCOL PRN Low PTT Protocol Heparin Sodium/Sodium Chloride 250 mls @ 9.525 mls/hr 03/25/22 19:00 03/25/22 20:47 25,000 unit/ Sodium Chloride IV 12 units/kg/hr .Q24H [facility] 9.525 mls/hr Administration Protocol 12 UNITS/KG/HR Lorazepam 1 mg 03/25/22 16:11 Lorazepam 1 Mg Tab PO Q2HR PRN CIWA 8 or 9 Lorazepam 1 mg 03/25/22 16:12 Lorazepam 1 Mg Tab PO Q1HR PRN CIWA 10 to 15 Lorazepam 2 mg 03/25/22 16:12 Lorazepam 1 Mg Tab PO 04/17/22 16:13 Q10M PRN CIWA 16 or higher Metoprolol Tartrate 25 mg 03/25/22 21:00 03/25/22 20:43 Metoprolol Tartrate 25 Mg Tab PO 25 mg BID [facility] Administration Multivitamins 1 each 03/26/22 09:00 Multivitamins, Thera 1 Each Tab PO DAILY [facility] Nitroglycerin 0.4 mg 03/25/22 16:05 Nitroglycerin Sl Tabs 0.4 Mg Tab SUBLINGUAL Q5M PRN Chest Pain Nitroglycerin 1 inch 03/25/22 18:00 03/26/22 06:56 Nitroglycerin Oint 1 Inch/Gm Packet TOPICAL Not Given Q6HR [facility] Thiamine HCl 100 mg 03/26/22 07:30 03/26/22 06:55 Thiamine 100 Mg Tab PO 100 mg BID-W/MEALS [facility] Administration Intake and Output 03/25/22 03/26/22 03/26/22 22:59 06:59 14:59 Output Total 2 Balance -2 Output: Stool 2 Other: Voiding Method Toilet Toilet Urinal Urinal # Voids 2 # Bowel Movements 1 Weight 79.379 kg 03/26/22 03:45 03/26/22 03:45
[2022-03-26] MEDS: ATORVASTATIN 80 MG TAB PO SCH (08:06)
[2022-03-26] MEDS: FOLIC ACID 1 MG TAB PO SCH (08:06)
[2022-03-26] MEDS: ASPIRIN 81 MG PO SCH (08:06)
[2022-03-26] MEDS: METOPROLOL TARTRATE 50 MG TAB PO SCH ×2 (08:06→20:24)
[2022-03-26] MEDS: MULTIVITAMINS, THERA 1 EACH TAB PO SCH (08:06)
[2022-03-26] MEDS ORDERED: POTASSIUM CHLORIDE ER 20 MEQ TAB.ER PO STA (08:09)
[2022-03-26] MEDS ORDERED: MAGNESIUM OXIDE 400 MG TAB PO STA (08:09)
[2022-03-26] MEDS ORDERED: ASPIRIN 325 MG TAB PO SCH (09:00)
--- NOTE | 2022-03-26 09:54 | CT ---
EXAMINATION TYPE: CT chest angio for PE DATE OF EXAM: 03/26/2022 COMPARISON: NONE HISTORY: Chest pain, Elevated d dimer CT DLP: 363.5 mGycm. Automated Exposure Control for Dose Reduction was Utilized. CONTRAST: CTA scan of the thorax is performed with IV Contrast, patient injected with 63 mL of Isovue 370, pulm onary embolism protocol. MIP Images are created on CT scanner and reviewed. FINDINGS: LUNGS: Mild to moderate underlying emphysematous change greatest in the upper lungs is present. No acosta spicious focal consolidation. Trace bibasilar pleural effusions. No pneumothorax seen bilaterally. No suspicious pulmonary masses. MEDIASTINUM: There is satisfactory enhancement of the pulmonary artery and its branches, there is no CT evidence for pulmonary embolism. Post CABG changes with mediastinal clips and sternal wires is pre sent. Reflux of contrast into IVC and hepatic veins suggests degree of right heart failure. There is moderate left atrial dilatation. Calcification level of the mitral and aortic valve. No cardiomegaly or pericardial effusion. Prominent pulmonary arteries suggests underlying pulmonary artery hypertensi on. Enlarged paracarinal lymph node axial image 64 measures 2.0 x 1.5 cm, is nonspecific. Suspicious slightly enlarged right hilar lymph node axial image 78. Mild to moderate calcified plaque in the vis ualized thoracic aorta. OTHER: Bilateral gynecomastia. Visualized liver is heterogeneously hypodense consistent with fatty in filtration. IMPRESSION: 1. No CT evidence for acute pulmonary embolism. 2. Mild to moderate underlying emphysematous change. Trace bilateral pleural effusions. Suggestion of underlying pulmonary artery hypertension and right heart failure. No suspicious focal consolidation. Post-CABG changes noted. Nonspecific thoracic adenopathy.
--- NOTE | 2022-03-26 11:24 | CA ---
Transthoracic Echo Report Name: Ridge Rashid Age: 62 Gender: M : 1960 Exam Date: 03/26/2022 08:37 Exam Location: [place] [facility] Ht (in): 71 Wt (lb): 175 Ordering Physician: Javi Pepe Attending/Referring Phys: Game Master Kathryn Rojas RDCS Procedure CPT: Indications: elevated troponin Cardiac Hx: Technical Quality: Good Contrast 1: Total Dose (mL): Contrast 2: Total Dose (mL): MEASUREMENTS (Male / Female) Normal Values 2D ECHO LV Diastolic Diameter PLAX 4.4 cm 4.2 - 5.9 / 3.9 - 5.3 cm LV Systolic Diameter PLAX 3.5 cm IVS Diastolic Thickness 1.6 cm 0.6 - 1.0 / 0.6 - 0.9 cm LVPW Diastolic Thickness 1.5 cm 0.6 - 1.0 / 0.6 - 0.9 cm LV Relative Wall Thickness 0.7 LVOT Diameter 2.0 cm LA Volume 65.9 cm??? 18 - 58 / 22 - 52 cm??? M-MODE Aortic Root Diameter MM 2.9 cm LA Systolic Diameter MM 3.6 cm LA Ao Ratio MM 1.2 MV E Point Septal Separation 1.3 cm AV Cusp Separation MM 1.2 cm DOPPLER AV Peak Velocity 199.5 cm/s AV Peak Gradient 15.9 mmHg AV Mean Velocity 147.7 cm/s AV Mean Gradient 10.0 mmHg AV Velocity Time Integral 33.8 cm LVOT Peak Velocity 58.1 cm/s LVOT Peak Gradient 1.4 mmHg AV Area Cont Eq pk 0.9 cm??? MR Peak Velocity 328.4 cm/s MR Peak Gradient 43.1 mmHg TR Peak Velocity 193.1 cm/s TR Peak Gradient 14.9 mmHg Right Ventricular Systolic Press 19.9 mmHg FINDINGS Left Ventricle Moderate LVH. Left ventricular ejection fraction is estimated at 40-45 %. There is inferior and inferolateral hypokinesis. Left ventricular cavity size normal. Arrythmia noted. Right Ventricle The right ventricle is normal in size and function. Right Atrium The right atrium is normal in size. Left Atrium Mildly increased left atrial volume. Mildly increased left atrial area. Mitral Valve Structurally normal mitral valve without significant stenosis or prolapse. There is mild mitral regurgitation. Mitral valve thickened. Aortic Valve Diffuse thickening of the aortic valve cusps with reduced excursion. Mild aortic stenosis with a peak gradient of 16 mmHg and a mean gradient of 10 mmHg. No aortic regurge. Tricuspid Valve Structurally normal tricuspid valve without significant stenosis. Pulmonary artery systolic pressure is normal. Pulmonic Valve Structurally normal pulmonic valve without significant stenosis. There is no pulmonic regurgitation. Pericardium Normal pericardium without effusion. Aorta Normal aortic root dimension. CONCLUSIONS Left ventricular EF 40-45% with inferior and inferolateral hypokinesis Moderate LVH Mild mitral regurgitation Mild to moderate aortic stenosis No pericardial effusion Previewed by: Dr. Mitchel Ramos DO (Electronically Signed) Final Date: 26 March 2022 11:24
[2022-03-26 12:12] LABS: Chol/HDL Ratio 3.11 Ratio; LDL Cholesterol,Calculated 107.9 mg/dL (0.0-131.0); VLDL Calculation 10.24 mg/dL (5.00-40.00)
--- NOTE | 2022-03-26 12:58 | P.PN ---
Subjective Progress Note Date: 03/26/22 Hospital course: Patient is a 62-year-old male with a past medical history of CAD status post CABG x4 in 2013, hypertension, hyperlipidemia, alcoholism drinking a reported 4- 5 "tall boys" per day, nicotine dependence, and cannabis use. Patient presented to the emergency department with a chief complaint of intermittent chest pain 4 days and alcohol intoxication. Patient was reportedly going to [place] for rehab as he decided he wanted to quit drinking but was found to be intoxicated and sent to the emergency department for detox and EMS was called for transfer to our facility. EMS reports upon their arrival they found the patient with a heart rate of 160 bpm. The reportedly gave the patient a 1 L bolus of fluid resulting in significant improvement of his heart rate back down to 100. Patient reported to drinking daily at least 4-5 tall boys per day. In addition stated smoking approximately 1/4-1/2 pack of cigarettes per day as well as occasional marijuana use. Patient stated that he had his cardiac bypass in 2013 at [facility] and he was supposed to be taking medication for his blood pressure and cholesterol, however he has not followed up with a staffing director or a PCP. Upon arrival to the emergency department, EKG was co mpleted revealing new onset atrial fibrillation. CBC unremarkable with the exception of thrombocytopenia with platelet count of 106. CMP revealing hypokalemia with potassium of 2.9, hypomagnesemia with magnesium of 1.6, and elevated liver enzymes with AST of 152 and ALT of 100. Troponin elevated at 0.085 and serum alcohol level of 291. Patient was started on a heparin infusion and admitted under our services with consultation to cardiology. D-dimer obtain secondary to tachycardia and chest pain, this was elevated at 1.49. Patient underwent a CTA of chest which was negative for pulmonary emboli revealing mild to moderate underlying emphysematous changes along with trace bilateral pleural effusions and suggestive of underlying pulmonary artery hypertension with right- sided heart failure. Echocardiogram was also completed revealing an impaired EF of 40-45% with inferior and inferolateral hypokinesis, moderate LVH, mild mitral regurgitation, and mild to moderate aortic stenosis. Lipid profile unremarkable. Patient remains on heparin infusion at this time. Physical exam: Patient seen and fully evaluated at bedside this morning. Patient appears to be doing well, current CIWA is 3. Patient currently denies experiencing any chest pain, palpitations, shortness of breath, nausea, dizziness, lightheadedness, or experiencing any numbness/tingling/weakness in his extremities. Blood pressure is slightly elevated however patient's metoprolol has been increased to 50 mg daily, and we will continue to monitor blood pressures closely. At this time patient to remain on heparin infusion. Metoprolol was increased to 50 mg daily. Repeat morning labs revealed continued hyperal cholemia and hypomagnesemia. Potassium 3.2 and magnesium 1.7 both replaced. Lipid profile unremarkable. Vital signs reviewed and stable. General: Nontoxic, no distress and appears stated age. Derm: Skin warm and dry, normal coloration for ethnicity. Head: Atraumatic, normocephalic and symmetric. Eyes: EOMs intact, no lid lag, and anicteric sclera Mouth: no lip lesions, mucus membranes moist Cardiovascular: Tachycardic rate with a regular rhythm with normal S1S2, systolic murmur, positive posterior tibial pulses bilaterally, and cap refill < 2 seconds. Lungs: Respirations even, regular, and unlabored on room air. Lungs diminished with mild soft expiratory wheezes, no crackles, rales, or rhonchi noted. Abdominal: soft, nontender to palpation, no guarding, no appreciable organomegaly Ext: ROM intact. No gross muscle atrophy, no edema, no contractures Neuro: Speech clear, face symmetrical and CN II-XII grossly intact with no noted focal neuro deficits Psych: Alert and oriented to person, place, time, and situation. Appropriate and pleasant affect. Assessment and Plan of Care: Chest pain, rule out acute coronary event Elevated troponins, Flat. Likely resulting from demand ischemia secondary to rapid ventricular rate patient previously experienced. New-onset atrial fibrillation with rapid ventricular rate Elevated d-dimer, CTA negative for PE History of CAD status post CABG Hypertension Hyperlipidemia -Cardiology following, increased metoprolol to 50 mg twice daily -Heparin infusion -Telemetry monitoring -Trend troponins -Cardiac diet, NPO at midnight -Started patient on daily Aspirin, atorvastatin, and metoprolol -Lipid profile with a.m. labs. -Echocardiogram -CTA completed negative for pulmonary emboli revealing mild to moderate unde rlying emphysematous changes along with trace bilateral pleural effusions and suggest of of underlying pulmonary artery hypertension with right heart failure. Alcohol intoxication an active alcoholic -[facility] Protocol with symptom triggered medication management with benzodiazepines. -Thiamine 100 mg twice a day -Multivitamin daily -Folate 1 mg daily -Seizure, fall, aspiration, and elopement precautions in place. -Continued close monitoring of electrolytes and replace as needed. -Telemetry monitoring. Hypomagnesemia Hypokalemia -Replaced. We will continue to monitor with repeat a.m. labs. Nicotine dependence -Recommend smoking cessation. CODE STATUS: Full code DVT prophylaxis: Heparin Discussed with: patient and RN Anticipated discharge date: Clinical course to determine Anticipated discharge place: Home A total of 38 minutes was spent on the care of this complex patient more than 50% of the time was spent in counseling and care coordination. Objective - Vital Signs Vital signs: Vital Signs Temp 98.8 F 03/26/22 03:56 Pulse 71 03/26/22 03:56 Resp 12 03/26/22 03:56 BP 160/97 03/26/22 03:56 Pulse Ox 93 L 03/26/22 03:56 FiO2 Intake & Output 03/25/22 03/26/22 03/26/22 18:59 06:59 18:59 Output Total 2 Balance -2 Weight 79.379 kg Output: Stool 2 Other: Voiding Method Toilet Urinal # Voids 2 # Bowel Movements 1 - Labs CBC & Chem 7: 03/26/22 03:45 03/26/22 03:45 Labs: Abnormal Lab Results - Last 24 Hours (Table) 03/25/22 03/25/22 03/25/22 Range/Units 14:58 14:58 14:58 RBC 4.19 L (4.30-5.90) m/uL MCV (80.0-100.0) fL Plt Count 106 L (150-450) k/uL APTT (22.0-30.0) sec D-Dimer (<0.60) mg/L FEU Potassium 2.9 L (3.5-5.1) mmol/L Carbon Dioxide 21 L (22-30) mmol/L BUN 3 L (9-20) mg/dL Creatinine (0.66-1.25) mg/dL Glucose 153 H (74-99) mg/dL Calcium 8.2 L (8.4-10.2) mg/dL AST 152 H (17-59) U/L ALT 100 H (4-49) U/L Troponin I 0.085 H* (0.000-0.034) ng/mL Serum Alcohol 291 H* mg/dL 03/25/22 03/25/22 03/25/22 Range/Units 16:37 18:38 19:37 RBC (4.30-5.90) m/uL MCV (80.0-100.0) fL Plt Count (150-450) k/uL APTT (22.0-30.0) sec D-Dimer 1.49 H (<0.60) mg/L FEU Potassium (3.5-5.1) mmol/L Carbon Dioxide (22-30) mmol/L BUN (9-20) mg/dL Creatinine (0.66-1.25) mg/dL Glucose (74-99) mg/dL Calcium (8.4-10.2) mg/dL AST (17-59) U/L ALT (4-49) U/L Troponin I 0.094 H* 0.097 H* (0.000-0.034) ng/mL Serum Alcohol mg/dL 03/26/22 03/26/22 03/26/22 Range/Units 03:45 03:45 03:45 RBC 4.24 L (4.30-5.90) m/uL MCV 100.1 H (80.0-100.0) fL Plt Count 88 L (150-450) k/uL APTT 52.0 H (22.0-30.0) sec D-Dimer (<0.60) mg/L FEU Potassium 3.2 L (3.5-5.1) mmol/L Carbon Dioxide (22-30) mmol/L BUN 2 L (9-20) mg/dL Creatinine 0.54 L (0.66-1.25) mg/dL Glucose (74-99) mg/dL Calcium 8.1 L (8.4-10.2) mg/dL AST 171 H (17-59) U/L ALT 109 H (4-49) U/L Troponin I (0.000-0.034) ng/mL Serum Alcohol mg/dL
[2022-03-26 15:49] LABS: INR 1.1 (<1.2); Prothrombin Time 12.2 sec (9.0-12.0)
[2022-03-26] MEDS: LORazepam 1 MG TAB PO PRN (15:53)
[2022-03-27 04:06] LABS: HCT 50.2 % (39.0-53.0); HGB 17.1 gm/dL (13.0-17.5); MCH 33.9 pg (25.0-35.0); MCV 99.8 fL (80.0-100.0); Mean Platelet Volume 8.6; RBC 5.03 m/uL (4.30-5.90); RDW 12.7 % (11.5-15.5); WBC 6.3 k/uL (3.8-10.6)
[2022-03-27 04:10] LABS: Platelet Count 77 k/uL (150-450)
[2022-03-27 04:31] LABS: ALT 87 U/L (4-49); AST 111 U/L (17-59); African American GFR (CKD) >90 (>60 ml/min/1.73 sqM); Albumin 3.9 g/dL (3.5-5.0); Alkaline Phosphatase 113 U/L (38-126); Anion Gap 10 mmol/L; Blood Urea Nitrogen 6 mg/dL (9-20); Calcium 8.8 mg/dL (8.4-10.2); Carbon Dioxide 24 mmol/L (22-30); Chloride 100 mmol/L (98-107); Glucose 106 mg/dL (74-99); Magnesium 1.6 mg/dL (1.6-2.3); Non-African American GFR(CKD) >90 (>60 ml/min/1.73 sqM); Potassium 3.3 mmol/L (3.5-5.1); Sodium 134 mmol/L (137-145); Total Protein 6.9 g/dL (6.3-8.2)
[2022-03-27] MEDS: THIAMINE 100 MG TAB PO SCH ×2 (06:39→16:56)
[2022-03-27] MEDS: HEPARIN SOD,PORK IN 0.45% NACL 25,000 UNIT in 0.45% NACL 1 250ML.BAG IV SCH (06:40)
[2022-03-27] MEDS: LORazepam 1 MG TAB PO PRN (06:45)
[2022-03-27] MEDS: METOPROLOL TARTRATE 50 MG TAB PO SCH (07:22)
[2022-03-27] MEDS: FOLIC ACID 1 MG TAB PO SCH (07:53)
[2022-03-27] MEDS: ATORVASTATIN 80 MG TAB PO SCH (07:53)
[2022-03-27] MEDS: MULTIVITAMINS, THERA 1 EACH TAB PO SCH (07:53)
[2022-03-27] MEDS: ASPIRIN 81 MG PO SCH (07:54)
[2022-03-27] MEDS ORDERED: POTASSIUM CHLORIDE ER 20 MEQ TAB.ER PO STA (08:35)
--- NOTE | 2022-03-27 13:04 | P.PN ---
Subjective Progress Note Date: 03/27/22 Hospital course: Patient is a 62-year-old male with a past medical history of CAD status post CABG x4 in 2013, hypertension, hyperlipidemia, alcoholism drinking a reported 4- 5 "tall boys" per day, nicotine dependence, and cannabis use. Patient presented to the emergency department with a chief complaint of intermittent chest pain 4 days and alcohol intoxication. Patient was reportedly going to [place] for rehab as he decided he wanted to quit drinking but was found to be intoxicated and sent to the emergency department for detox and EMS was called for transfer to our facility. EMS reports upon their arrival they found the patient with a heart rate of 160 bpm. The reportedly gave the patient a 1 L bolus of fluid resulting in significant improvement of his heart rate back down to 100. Patient reported to drinking daily at least 4-5 tall boys per day. In addition stated smoking approximately 1/4-1/2 pack of cigarettes per day as well as occasional marijuana use. Patient stated that he had his cardiac bypass in 2013 at [facility] and he was supposed to be taking medication for his blood pressure and cholesterol, however he has not followed up with a commercial subcontractor or a PCP. Upon arrival to the emergency department, EKG was co mpleted revealing new onset atrial fibrillation. CBC unremarkable with the exception of thrombocytopenia with platelet count of 106. CMP revealing hypokalemia with potassium of 2.9, hypomagnesemia with magnesium of 1.6, and elevated liver enzymes with AST of 152 and ALT of 100. Troponin elevated at 0.085 and serum alcohol level of 291. Patient was started on a heparin infusion and admitted under our services with consultation to cardiology. D-dimer obtain secondary to tachycardia and chest pain, this was elevated at 1.49. Patient underwent a CTA of chest which was negative for pulmonary emboli revealing mild to moderate underlying emphysematous changes along with trace bilateral pleural effusions and suggestive of underlying pulmonary artery hypertension with right- sided heart failure. Echocardiogram was also completed revealing an impaired EF of 40-45% with inferior and inferolateral hypokinesis, moderate LVH, mild mitral regurgitation, and mild to moderate aortic stenosis. Lipid profile unremarkable. Patient remains on heparin infusion at this time. Physical exam: Patient seen and fully evaluated at bedside this morning. Pt's CIWA score was 9 this morning inpatient medicated per protocol at that time. RN reports patient also had episode of RVR overnight with heart rate increasing into 160s and sustaining for approximately 5 minutes. Patient reports this was when he got up to use the restroom and felt extremely short of breath and upon returning to bed was still short of breath. Patient currently maintaining A. fib with RVR with heart rate 90s to 110s, but does significantly increase with minimal exertion. Patient remains on heparin infusion Lani M metoprolol 50 mg twice daily. Morning labs reviewed. Potassium 3.3 and magnesium 1.6, these were replaced. Patient currently denies having any chest pain or palpitations but does again report shortness of breath with minimal exertion. Vital signs reviewed and stable. General: Nontoxic, no distress and appears stated age. Derm: Skin warm and dry, normal coloration for ethnicity. Head: Atraumatic, normocephalic and symmetric. Eyes: EOMs intact, no lid lag, and anicteric sclera Mouth: no lip lesions, mucus membranes moist Cardiovascular: Tachycardic rate with a regular rhythm with normal S1S2, systolic murmur, positive posterior tibial pulses bilaterally, and cap refill < 2 seconds. Lungs: Respirations even, regular, and unlabored on room air. Lungs diminished with mild soft expiratory wheezes, no crackles, rales, or rhonchi noted. Abdominal: soft, nontender to palpation, no guarding, no appreciable organomegaly Ext: ROM intact. No gross muscle atrophy, no edema, no contractures Neuro: Speech clear, face symmetrical and CN II-XII grossly intact with no noted focal neuro deficits Psych: Alert and oriented to person, place, time, and situation. Appropriate and pleasant affect. Assessment and Plan of Care: Chest pain, rule out acute coronary event Elevated troponins, Flat. Likely resulting from demand ischemia secondary to rapid ventricular rate patient previously experienced. New-onset atrial fibrillation with rapid ventricular rate Elevated d-dimer, CTA negative for PE History of CAD status post CABG Hypertension Hyperlipidemia -Cardiology following, increased metoprolol to 50 mg twice daily -Heparin infusion -Telemetry monitoring -Cardiac continue daily Aspirin, atorvastatin, and metoprolol -Lipid profileunremarkable. -Echocardiogram revealing an impaired EF of 40-45% with inferior and inferolateral hypokinesis, moderate LVH, mild mitral regurgitation, and mild to moderate aortic stenosis -CTA completed negative for pulmonary emboli revealing mild to moderate underlying emphysematous changes along with trace bilateral pleural effusions and suggest of of underlying pulmonary artery hypertension with right heart failure. Alcohol intoxication an active alcoholic -[facility] Protocol with symptom triggered medication management with benzodiazepines. -Thiamine 100 mg twice a day -Multivitamin daily -Folate 1 mg daily -Seizure, fall, aspiration, and elopement precautions in place. -Continued close monitoring of electrolytes and replace as needed. -Telemetry monitoring. Hypomagnesemia Hypokalemia -Replaced. We will continue to monitor with repeat a.m. labs. Nicotine dependence -Recommend smoking cessation. CODE STATUS: Full code DVT prophylaxis: Heparin Discussed with: patient and RN Anticipated discharge date: Clinical course to determine Anticipated discharge place: Home A total of 35 minutes was spent on the care of this complex patient more than 50% of the time was spent in counseling and care coordination. Objective - Vital Signs Vital signs: Vital Signs Temp 99.1 F 03/27/22 07:49 Pulse 91 03/27/22 07:49 Resp 18 03/27/22 07:49 BP 145/90 03/27/22 07:49 Pulse Ox 96 03/27/22 07:49 FiO2 Intake & Output 03/26/22 03/27/22 03/27/22 18:59 06:59 18:59 Intake Total 321.5 250.317 Balance 321.5 250.317 Weight 74.3 kg Intake: Intake, IV Titration 85.5 250.317 Amount Heparin Sod,Pork in 0.45% 85.5 250.317 NaCl 25,000 unit In 0.45 % NaCl 1 250ml.bag @ 12 UNITS/KG/HR 9.525 mls/hr IV .Q24H COUNTS INCLUDE 234 BEDS AT THE [facility] Rx#: [id number] Oral 236 Other: Voiding Method Toilet Toilet Urinal Urinal # Voids 1 1 # Bowel Movements 1 - Labs CBC & Chem 7: 03/27/22 03:48 03/27/22 03:48 Labs: Abnormal Lab Results - Last 24 Hours (Table) 03/26/22 03/27/22 03/27/22 Range/Units 03:45 03:48 03:48 Plt Count 77 L (150-450) k/uL PT 12.2 H (9.0-12.0) sec APTT 43.0 H (22.0-30.0) sec Sodium (137-145) mmol/L Potassium (3.5-5.1) mmol/L BUN (9-20) mg/dL Creatinine (0.66-1.25) mg/dL Glucose (74-99) mg/dL Total Bilirubin (0.2-1.3) mg/dL AST (17-59) U/L ALT (4-49) U/L 03/27/22 Range/Units 03:48 Plt Count (150-450) k/uL PT (9.0-12.0) sec APTT (22.0-30.0) sec Sodium 134 L (137-145) mmol/L Potassium 3.3 L (3.5-5.1) mmol/L BUN 6 L (9-20) mg/dL Creatinine 0.53 L (0.66-1.25) mg/dL Glucose 106 H (74-99) mg/dL Total Bilirubin 2.0 H (0.2-1.3) mg/dL AST 111 H (17-59) U/L ALT 87 H (4-49) U/L
[2022-03-27] MEDS: MAGNESIUM SULFATE-D5W PMX 1 GM in DEXTROSE/WATER 1 100ML.BAG IVPB SCH ×3 (14:11→16:56)
--- NOTE | 2022-03-27 18:02 | P.PN ---
Subjective HISTORY OF PRESENTING ILLNESS Patient is a pleasant 62-year-old male with history of CAD status post CABG 4 in 2013, hypertension, hyperlipidemia, alcoholism, tobacco abuse, marijuana use who presents secondary chest pains. He states he went to [place] rehab to detox from drinking however was found to be intoxicated and therefore sent to ER for detox. On transfer to the ER EMS found patient to be tachycardiac with heart rate 160 bpm and reportedly gave IV fluid bolus with improvement in heart rate down to the 100 range. EKG and emergency department showed new onset Afib and no strips from EMS. He has been noncompliant and has not been following with a PCP or melter caster. He denies any history of atrial fibrillation in the past. He denies any clear correlation of his chest pains with exertion however does get very short of breath with exertion. He admits he is mainly limited by "blockages in my legs ". He does get some medications from some Dr. however unclear who is an unclear what medications he takes. He denies any history of cardiomyopathy in the past. He is starting to undergo withdrawal and is somewhat shaky currently. He does admit to feelings of palpitations at times and will get more short of breath when he does have palpitations. Blood work shows hemoglobin 14.4, platelets 106, potassium 2.9, creatinine 0.9, troponins 0.08, 0.09, 0.09, serum alcohol 291, AST 152, ALT 100. EKG shows atrial fibrillation with mild RVR heart rate 108 with normal axis, Q waves V1 and V2, nonspecific ST depressions in the inferior leads. 03/27 Patient seen and examined. Patient weighs in A. fib with heart rates pr edominantly 90s to low 100s and occasionally up to 130s to 150s when standing up and walking around. Denies any further chest pain or pressure. Mild withdrawals. Echocardiogram shows EF 40-45% with predominantly inferior hypokinesis. PHYSICAL EXAMINATION Vital signs reviewed. CONSTITUTIONAL: No apparent distress, chronically ill appearing HEENT: Head is normocephalic. Pupils are equal, round. Sclerae anicteric. Mucous membranes of the mouth are moist. No JVD. No carotid bruit. CHEST EXAMINATION: Lungs are clear to auscultation. No chest wall tenderness is noted on palpation or with deep breathing. HEART EXAMINATION: Irregularly irregular rate and rhythm. S1, S2 heard. +3/6 systolic murmur,no gallops or rub. ABDOMEN: Soft, nontender. Positive bowel sounds. EXTREMITIES: 2+ peripheral pulses, no lower extremity edema and no calf tenderness. NEUROLOGIC EXAMINATION: Patient is awake, alert and oriented x3. ASSESSMENT 1. Episodes of chest pain not clearly associated with exertion likely related to A. fib with RVR 2. New-onset atrial fibrillation with mild RVR 3. Coronary artery disease with prior history of CABG 4. NSTEMI, likely type II mechanism from RVR, alcohol intoxication and less likely type I etiology 5. Alcoholism beginning to go through withdrawals 6. Hypertension 7. Medical noncompliance 8. Tobacco abuse, marijuana use 9. Elevated AST/ALT from alcohol use 10. Mild to moderate aortic stenosis 11. PAD with claudication symptoms PLAN Patient has had poor follow-up. He appears to be tolerating the metoprolol 50 mg twice a day. We will attempt to uptitrate the beta meg given his CAD and A. fib with RVR. Check coverage for NOAC . Attempt to treat his chest pain/mildly elevated troponins conservatively given poor follow-up. Echo does show inferior hypokinesis but may be old from prior CABG. Increase metoprolol to 75 mg twice a day and monitor response. Further recommendations to follow. Objective - Vital Signs Vital signs: Vital Signs Temp 99.3 F 03/27/22 16:35 Pulse 93 03/27/22 16:35 Resp 18 03/27/22 16:35 BP 131/89 03/27/22 16:35 Pulse Ox 96 03/27/22 16:35 FiO2 Intake & Output 03/26/22 03/27/22 03/27/22 18:59 06:59 18:59 Intake Total 321.5 250.317 354 Balance 321.5 250.317 354 Weight 74.3 kg Intake: Intake, IV Titration 85.5 250.317 Amount Heparin Sod,Pork in 0.45% 85.5 250.317 NaCl 25,000 unit In 0.45 % NaCl 1 250ml.bag @ 12 UNITS/KG/HR 9.525 mls/hr IV .Q24H [facility] Rx#: [id number] Oral 236 354 Other: Voiding Method Toilet Toilet Toilet Urinal Urinal Urinal # Voids 1 1 1 # Bowel Movements 1 1 - Labs CBC & Chem 7: 03/27/22 03:48 03/27/22 03:48 Labs: Abnormal Lab Results - Last 24 Hours (Table) 03/27/22 03/27/22 03/27/22 Range/Units 03:48 03:48 03:48 Plt Count 77 L (150-450) k/uL APTT 43.0 H (22.0-30.0) sec Sodium 134 L (137-145) mmol/L Potassium 3.3 L (3.5-5.1) mmol/L BUN 6 L (9-20) mg/dL Creatinine 0.53 L (0.66-1.25) mg/dL Glucose 106 H (74-99) mg/dL Total Bilirubin 2.0 H (0.2-1.3) mg/dL AST 111 H (17-59) U/L ALT 87 H (4-49) U/L 03/27/22 Range/Units 13:00 Plt Count (150-450) k/uL APTT 47.8 H (22.0-30.0) sec Sodium (137-145) mmol/L Potassium (3.5-5.1) mmol/L BUN (9-20) mg/dL Creatinine (0.66-1.25) mg/dL Glucose (74-99) mg/dL Total Bilirubin (0.2-1.3) mg/dL AST (17-59) U/L ALT (4-49) U/L
[2022-03-27] MEDS: METOPROLOL TARTRATE 25 MG TAB PO SCH (20:29)
[2022-03-28] MEDS: THIAMINE 100 MG TAB PO SCH ×2 (06:25→15:58)
[2022-03-28] MEDS: HEPARIN SOD,PORK IN 0.45% NACL 25,000 UNIT in 0.45% NACL 1 250ML.BAG IV SCH ×2 (06:30→17:38)
[2022-03-28 07:29] LABS: HCT 44.9 % (39.0-53.0); HGB 15.6 gm/dL (13.0-17.5); MCHC 34.8 g/dL (31.0-37.0); MCV 100.5 fL (80.0-100.0); Mean Platelet Volume 9.5; RBC 4.47 m/uL (4.30-5.90); RDW 12.7 % (11.5-15.5); WBC 5.9 k/uL (3.8-10.6)
[2022-03-28 07:40] LABS: Platelet Count 74 k/uL (150-450)
[2022-03-28 09:50] LABS: African American GFR (CKD) >90 (>60 ml/min/1.73 sqM); Anion Gap 8 mmol/L; Blood Urea Nitrogen 12 mg/dL (9-20); Carbon Dioxide 26 mmol/L (22-30); Chloride 102 mmol/L (98-107); Glucose 112 mg/dL (74-99); Magnesium 1.8 mg/dL (1.6-2.3); Non-African American GFR(CKD) >90 (>60 ml/min/1.73 sqM); Potassium 3.1 mmol/L (3.5-5.1); Sodium 136 mmol/L (137-145)
[2022-03-28] MEDS ORDERED: Potassium Replacement Protocol 1 EACH MISC MISCELLANE PRN (10:03)
[2022-03-28] MEDS: ASPIRIN 81 MG PO SCH (10:06)
[2022-03-28] MEDS: MULTIVITAMINS, THERA 1 EACH TAB PO SCH (10:07)
[2022-03-28] MEDS: ATORVASTATIN 80 MG TAB PO SCH (10:07)
[2022-03-28] MEDS: FOLIC ACID 1 MG TAB PO SCH (10:08)
[2022-03-28] MEDS: METOPROLOL TARTRATE 25 MG TAB PO SCH (10:08)
[2022-03-28] MEDS: POTASSIUM CHLORIDE ER 20 MEQ TAB.ER PO SCH ×2 (10:12→12:34)
[2022-03-28] MEDS ORDERED: METOPROLOL TARTRATE 25 MG TAB PO STA (11:34)
--- NOTE | 2022-03-28 13:14 | P.PN ---
Subjective HISTORY OF PRESENTING ILLNESS Patient is a pleasant 62-year-old male with history of CAD status post CABG 4 in 2013, hypertension, hyperlipidemia, alcoholism, tobacco abuse, marijuana use who presents secondary chest pains. He states he went to [place] [facility] to detox from drinking however was found to be intoxicated and therefore sent to ER for detox. On transfer to the ER EMS found patient to be tachycardiac with heart rate 160 bpm and reportedly gave IV fluid bolus with improvement in heart rate down to the 100 range. EKG and emergency department showed new onset Afib and no strips from EMS. He has been noncompliant and has not been following with a PCP or teacher assistant. He denies any history of atrial fibrillation in the past. He denies any clear correlation of his chest pains with exertion however does get very short of breath with exertion. He admits he is mainly limited by "blockages in my legs ". He does get some medications from some Dr. however unclear who is an unclear what medications he takes. He denies any history of cardiomyopathy in the past. He is starting to undergo withdrawal and is somewhat shaky currently. He does admit to feelings of palpitations at times and will get more short of breath when he does have palpitations. Blood work shows hemoglobin 14.4, platelets 106, potassium 2.9, creatinine 0.9, troponins 0.08, 0.09, 0.09, serum alcohol 291, AST 152, ALT 100. EKG shows atrial fibrillation with mild RVR heart rate 108 with normal axis, Q waves V1 and V2, nonspecific ST depressions in the inferior leads. 03/28/2022 Patient seen and examined sitting up in bed in no acute distress. He continues to be in atrial fibrillation with uncontrolled rates. Heart rate is around 100 210. He denies symptoms of chest pain, shortness of breath, dizziness or palpitations. He is still on heparin drip. Blood pressure 136/80 heart rate 93 afebrile maintaining oxygen saturation on nasal cannula. Laboratory data reviewed, CBC unremarkable, sodium 136, potassium 3.1, magnesium 1.8 and crea tinine 0.6. PHYSICAL EXAMINATION CONSTITUTIONAL: No apparent distress, chronically ill appearing HEENT: Head is normocephalic. Pupils are equal, round. Sclerae anicteric. Mucous membranes of the mouth are moist. No JVD. No carotid bruit. CHEST EXAMINATION: Lungs are clear to auscultation. No chest wall tenderness is noted on palpation or with deep breathing. HEART EXAMINATION: Irregularly irregular rate and rhythm. S1, S2 heard. +3/6 systolic murmur,no gallops or rub. EXTREMITIES: 2+ peripheral pulses, no lower extremity edema and no calf tenderness. ASSESSMENT 1. Episodes of chest pain not clearly associated with exertion likely related to A. fib with RVR 2. New-onset atrial fibrillation with mild RVR 3. Coronary artery disease with prior history of CABG 4. NSTEMI, likely type II mechanism from RVR, alcohol intoxication and less likely type I etiology 5. Alcoholism beginning to go through withdrawals 6. Hypertension 7. Medical noncompliance 8. Tobacco abuse, marijuana use 9. Elevated AST/ALT from alcohol use 10. Mild to moderate aortic stenosis 11. PAD with claudication symptoms PLAN Add losartan 25 mg daily. Replace potassium per protocol. Increase beta meg to 100 mg twice a day. Check coverage of eliquis 5 mg BID with binder caser. Advice complete alcohol cessation. Further recommendations to follow based upon clinical course. Nurse Practitioner note has been reviewed, I agree with a documented findings and plan of care. Patient was seen and examined. Objective - Vital Signs Vital signs: Vital Signs Temp 97.5 F L 03/28/22 08:00 Pulse 93 03/28/22 08:00 Resp 18 03/28/22 08:00 BP 136/80 03/28/22 08:00 Pulse Ox 96 03/28/22 08:00 FiO2 Intake & Output 03/27/22 03/28/22 03/28/22 18:59 06:59 18:59 Intake Total 1312 249.683 118 Output Total 550 225 Balance 1312 -300.317 -107 Intake: Intake, IV Titration 300 249.683 Amount Heparin Sod,Pork in 0.45% 249.683 NaCl 25,000 unit In 0.45 % NaCl 1 250ml.bag @ 12 UNITS/KG/HR 9.525 mls/hr IV .Q24H [facility] Rx#: [id number] Magnesium Sulfate-D5w Pmx 300 1 gm In Dextrose/Water 1 100ml.bag @ 100 mls/hr IVPB Q1H [facility] Rx#: [id number] Oral 1012 118 Output: Urine 550 225 Other: Voiding Method Toilet Toilet Urinal Urinal # Voids 1 # Bowel Movements 1 1 - Labs CBC & Chem 7: 03/28/22 06:49 03/28/22 06:49 Labs: Abnormal Lab Results - Last 24 Hours (Table) 03/28/22 03/28/22 03/28/22 Range/Units 06:49 06:49 06:49 MCV 100.5 H (80.0-100.0) fL Plt Count 74 L (150-450) k/uL APTT 43.7 H (22.0-30.0) sec Sodium 136 L (137-145) mmol/L Potassium 3.1 L (3.5-5.1) mmol/L Creatinine 0.60 L (0.66-1.25) mg/dL Glucose 112 H (74-99) mg/dL Calcium 8.0 L (8.4-10.2) mg/dL
--- NOTE | 2022-03-28 15:56 | P.PN ---
Subjective Progress Note Date: 03/28/22 Hospital course: Patient is a 62-year-old male with a past medical history of CAD status post CABG x4 in 2013, hypertension, hyperlipidemia, alcoholism drinking a reported 4- 5 "tall boys" per day, nicotine dependence, and cannabis use. Patient presented to the emergency department with a chief complaint of intermittent chest pain 4 days and alcohol intoxication. Patient was reportedly going to [place] for rehab as he decided he wanted to quit drinking but was found to be intoxicated and sent to the emergency department for detox and EMS was called for transfer to our facility. EMS reports upon their arrival they found the patient with a heart rate of 160 bpm. The reportedly gave the patient a 1 L bolus of fluid resulting in significant improvement of his heart rate back down to 100. Patient reported to drinking daily at least 4-5 tall boys per day. In addition stated smoking approximately 1/4-1/2 pack of cigarettes per day as well as occasional marijuana use. Patient stated that he had his cardiac bypass in 2013 at [facility] and he was supposed to be taking medication for his blood pressure and cholesterol, however he has not followed up with a route aide or a PCP. Upon arrival to the emergency department, EKG was co mpleted revealing new onset atrial fibrillation. CBC unremarkable with the exception of thrombocytopenia with platelet count of 106. CMP revealing hypokalemia with potassium of 2.9, hypomagnesemia with magnesium of 1.6, and elevated liver enzymes with AST of 152 and ALT of 100. Troponin elevated at 0.085 and serum alcohol level of 291. Patient was started on a heparin infusion and admitted under our services with consultation to cardiology. D-dimer obtain secondary to tachycardia and chest pain, this was elevated at 1.49. Patient underwent a CTA of chest which was negative for pulmonary emboli revealing mild to moderate underlying emphysematous changes along with trace bilateral pleural effusions and suggestive of underlying pulmonary artery hypertension with right- sided heart failure. Echocardiogram was also completed revealing an impaired EF of 40-45% with inferior and inferolateral hypokinesis, moderate LVH, mild mitral regurgitation, and mild to moderate aortic stenosis. Lipid profile unremarkable. Patient remains on heparin infusion at this time. Physical exam: Patient seen and fully evaluated at bedside this morning. Patient appeared to be actively withdrawing, he was very fidgety in bed, diaphoretic, tremulous and reports feeling very anxious. Notified RN and she reported CIWA score is currently 18 and medicating patient at this time per protocol. Patient reports he is unclear whether he is having chest pain or if it is just his anxiety this morning, but denies having any palpitations, dizziness, lightheadedness, nausea, or vomiting. Currently he remains on heparin infusion along with daily aspirin, atorvastatin and metoprolol. Morning labs revealed hypokalemia with potassium of 3.1 otherwise no significant abnormalities. Vital signs reviewed and stable. General: Nontoxic, no distress and appears stated age. Derm: Skin warm and dry, normal coloration for ethnicity. Head: Atraumatic, normocephalic and symmetric. Eyes: EOMs intact, no lid lag, and anicteric sclera Mouth: no lip lesions, mucus membranes moist Cardiovascular: Irregularly irregular with normal S1S2, systolic murmur, positive posterior tibial pulses bilaterally, and cap refill < 2 seconds. Lungs: Respirations even, regular, and unlabored on room air. Lungs diminished with mild soft expiratory wheezes, no crackles, rales, or rhonchi noted. Abdominal: soft, nontender to palpation, no guarding, no appreciable organomegaly Ext: ROM intact. No gross muscle atrophy, no edema, no contractures Neuro: Speech clear, face symmetrical and CN II-XII grossly intact with no noted focal neuro deficits Psych: Alert and oriented to person, place, time, and situation. Appropriate and pleasant affect. Assessment and Plan of Care: Chest pain, rule out acute coronary event Elevated troponins, Flat. Likely resulting from demand ischemia secondary to rapid ventricular rate patient previously experienced. New-onset atrial fibrillation with rapid ventricular rate Elevated d-dimer, CTA negative for PE History of CAD status post CABG Hypertension Hyperlipidemia -Cardiology following, appreciate further recommendations -Heparin infusion -Telemetry monitoring -Cardiac continue daily Aspirin, atorvastatin, and metoprolol -Lipid profile unremarkable. -Echocardiogram revealing an impaired EF of 40-45% with inferior and inferolateral hypokinesis, moderate LVH, mild mitral regurgitation, and mild to moderate aortic stenosis -CTA completed negative for pulmonary emboli revealing mild to moderate underlying emphysematous changes along with trace bilateral pleural effusions and suggest of of underlying pulmonary artery hypertension with right heart failure. Alcohol intoxication an active alcoholic Acute alcohol withdrawal -[facility] Protocol with symptom triggered medication management with benzodiazepine s. -Thiamine 100 mg twice a day -Multivitamin daily -Folate 1 mg daily -Seizure, fall, aspiration, and elopement precautions in place. -Continued close monitoring of electrolytes and replace as needed. -Telemetry monitoring. Hypomagnesemia Hypokalemia -Replaced. We will continue to monitor with repeat a.m. labs. Nicotine dependence -Recommend smoking cessation. CODE STATUS: Full code DVT prophylaxis: Heparin Discussed with: patient and RN Anticipated discharge date: Clinical course to determine Anticipated discharge place: Home A total of 36 minutes was spent on the care of this complex patient more than 5 0% of the time was spent in counseling and care coordination. Objective - Vital Signs Vital signs: Vital Signs Temp 98.7 F 03/28/22 04:00 Pulse 72 03/28/22 04:00 Resp 12 03/28/22 04:00 BP 128/89 03/28/22 04:00 Pulse Ox 98 03/28/22 04:00 FiO2 Intake & Output 03/27/22 03/28/22 03/28/22 18:59 06:59 18:59 Intake Total 1312 249.683 118 Output Total 550 225 Balance 1312 -300.317 -107 Intake: Intake, IV Titration 300 249.683 Amount Heparin Sod,Pork in 0.45% 249.683 NaCl 25,000 unit In 0.45 % NaCl 1 250ml.bag @ 12 UNITS/KG/HR 9.525 mls/hr IV .Q24H [facility] Rx#: [id number] Magnesium Sulfate-D5w Pmx 300 1 gm In Dextrose/Water 1 100ml.bag @ 100 mls/hr IVPB Q1H [facility] Rx#: [id number] Oral 1012 118 Output: Urine 550 225 Other: Voiding Method Toilet Toilet Urinal Urinal # Voids 1 # Bowel Movements 1 1 - Labs CBC & Chem 7: 03/28/22 06:49 03/28/22 06:49 Labs: Abnormal Lab Results - Last 24 Hours (Table) 03/27/22 03/28/22 03/28/22 Range/Units 13:00 06:49 06:49 MCV 100.5 H (80.0-100.0) fL Plt Count 74 L (150-450) k/uL APTT 47.8 H 43.7 H (22.0-30.0) sec
[2022-03-28] MEDS: LORazepam 1 MG TAB PO PRN ×2 (15:59→20:34)
[2022-03-28] MEDS: LOSARTAN 25 MG TAB PO SCH (15:59)
[2022-03-28] MEDS: METOPROLOL TARTRATE 50 MG TAB PO SCH (20:34)
[2022-03-29] MEDS: THIAMINE 100 MG TAB PO SCH (07:01)
[2022-03-29 08:12] LABS: African American GFR (CKD) >90 (>60 ml/min/1.73 sqM); Anion Gap 9 mmol/L; Blood Urea Nitrogen 10 mg/dL (9-20); Calcium 8.7 mg/dL (8.4-10.2); Carbon Dioxide 23 mmol/L (22-30); Chloride 105 mmol/L (98-107); Glucose 109 mg/dL (74-99); Magnesium 1.6 mg/dL (1.6-2.3); Non-African American GFR(CKD) >90 (>60 ml/min/1.73 sqM); Potassium 3.7 mmol/L (3.5-5.1); Sodium 137 mmol/L (137-145)
[2022-03-29] MEDS: ASPIRIN 81 MG PO SCH (08:29)
[2022-03-29] MEDS: LOSARTAN 25 MG TAB PO SCH (08:29)
[2022-03-29] MEDS: ATORVASTATIN 80 MG TAB PO SCH (08:29)
[2022-03-29] MEDS: METOPROLOL TARTRATE 50 MG TAB PO SCH (08:29)
[2022-03-29] MEDS: FOLIC ACID 1 MG TAB PO SCH (08:29)
[2022-03-29] MEDS: MULTIVITAMINS, THERA 1 EACH TAB PO SCH (08:29)
[2022-03-29] MEDS ORDERED: APIXABAN 5 MG TAB PO SCH (11:15)
[2022-03-29 12:31] VITALS: BP 156/99; PULSE 70; RESP 16; TEMP 98
--- NOTE | 2022-03-29 14:28 | P.DS ---
Providers Date of admission: 03/25/22 16:05 Attending physician: Angelica Sow DO Consults: 03/25/22 16:05 Consult Physician Urgent Consulting Provider: [facility] Consult Reason/Comments: Chest pain, elevated troponin Do you want consulting provider notified?: Yes Primary care physician: Stated None Hospital Course: This is a 62-year-old gentleman with a medical history for CAD status post CABG in 2012, hypertension, hyperlipidemia and alcoholism who presented with atypical chest pain and alcohol intoxication. He was found to be in A. fib with RVR. His troponins were found to be in indeterminate range likely secondary to his A. fib with RVR. He was started on a heparin drip. CTA was done which was negative for PE. Echocardiogram was done and showed EF 40-45% with inferior and inferolateral hypokinesis, moderate LVH, mild to moderate aortic stenosis. He was treated with heparin drip. His rate is now controlled on AV bk blockers. His symptoms have resolved. He is not currently going through any alcohol withdrawal. Cardiology evaluated and if cleared for discharge. His CIWA score was 0 today. He is outside withdrawal window. He is counseled to abstain from alcohol and check in 7 to rehab if needed. He is also counseled to quit smoking. Denied wanting any nicotine replacement. I have instructed for repeat CBC in 3 days as it appears he has some thrombocytopenia likely related to his alcohol use. He is instructed to follow-up with his [place] planning manager and PCP within one week. All questions were answered. Discharge diagnoses 1. Atypical chest pain, resolved 2. Indeterminate troponin, likely secondary to demand ischemia from A. fib with RVR 3. A. fib with RVR, now rate controlled, prescribed eliquis on discharge 4. History of alcohol abuse, not currently withdraws, counseled to quit 5. Hypertension 6. Hyperlipidemia 7. History of CAD status post CABG 8. HF mildly reduced EF, not in exacerbation Discharge date: 03/29/2022 Discharge coordination time greater than 30 minutes Physical exam on day of discharge: Gen.: No acute distress HEENT: Mucous membranes moist, sclerae anicteric CVS: Irregular, rate controlled Abdomen: Soft, nontender, nondistended Lungs: Clear to auscultation, no wheezing Extremities: No lower extremity edema Assessment: This is a 62-year-old gentleman with a medical history for CAD status post CABG in 2012, hypertension, hyperlipidemia and alcoholism who presented with atypical chest pain and alcohol intoxication. He was found to be in A. fib with RVR. His troponins were found to be in indeterminate range likely secondary to his A. fib with RVR. He was started on a heparin drip. CTA was done which was negative for PE. Echocardiogram was done and showed EF 40-45% with inferior and inferolateral hypokinesis, moderate LVH, mild to moderate aortic stenosis. He was treated with heparin drip. His rate is now controlled on AV bk blockers. His symptoms have resolved. He is not currently going through any alcohol withdrawal. Cardiology evaluated and if cleared for discharge. His CIWA score was 0 today. He is outside withdrawal window. He is counseled to abstain from alcohol and check in 7 to rehab if needed. He is also counseled to quit smoking. Denied wanting any nicotine replacement. I have instructed for repeat CBC in 3 days as it appears he has some thrombocytopenia likely related to his alcohol use. He is instructed to follow-up with his [place] planning manager and PCP within one week. All questions were answered. Discharge diagnoses 1. Atypical chest pain, resolved 2. Indeterminate troponin, likely secondary to demand ischemia from A. fib with RVR 3. A. fib with RVR, now rate controlled, prescribed eliquis on discharge 4. History of alcohol abuse, not currently withdraws, counseled to quit 5. Hypertension 6. Hyperlipidemia 7. History of CAD status post CABG 8. HF mildly reduced EF, not in exacerbation Discharge date: 03/29/2022 Discharge coordination time greater than 30 minutes Patient Condition at Discharge: Good Plan - Discharge Summary New Discharge Prescriptions: New Aspirin 81 mg PO DAILY 30 Days #30 tab Losartan [Cozaar] 25 mg PO DAILY 30 Days #30 tab Folic Acid 1 mg PO DAILY 30 Days #30 tab Atorvastatin [Lipitor] 80 mg PO DAILY 30 Days #30 tab Metoprolol Tartrate [Lopressor] 50 mg PO TID 30 Days #30 tab Nitroglycerin Sl Tabs [Nitrostat] 0.4 mg SUBLINGUAL Q5M PRN 30 Days #30 tab PRN Reason: Chest Pain Apixaban [Eliquis] 5 mg PO BID #180 tab Thiamine [Vitamin B-1] 100 mg PO DAILY 30 Days #30 tablet Discharge Medication List Apixaban [Eliquis] 5 mg PO BID #180 tab 03/28/22 [Rx] Aspirin 81 mg PO DAILY 30 Days #30 tab 03/29/22 [Rx] Atorvastatin [Lipitor] 80 mg PO DAILY 30 Days #30 tab 03/29/22 [Rx] Folic Acid 1 mg PO DAILY 30 Days #30 tab 03/29/22 [Rx] Losartan [Cozaar] 25 mg PO DAILY 30 Days #30 tab 03/29/22 [Rx] Metoprolol Tartrate [Lopressor] 50 mg PO TID 30 Days #30 tab 03/29/22 [Rx] Nitroglycerin Sl Tabs [Nitrostat] 0.4 mg SUBLINGUAL Q5M PRN 30 Days #30 tab 03/29/22 [Rx] Thiamine [Vitamin B-1] 100 mg PO DAILY 30 Days #30 tablet 03/29/22 [Rx] Follow up Appointment(s)/Referral(s): None,Stated [Primary Care Provider] - 1-2 days Mitchel Ramos DO [STAFF PHYSICIAN] - 1 Week Ambulatory/Diagnostic Orders: Complete Blood Count w/diff [LAB.AMB] Time Frame: 3 Days, Location: None Selected Patient Instructions/Handouts: Seizure/Epilepsy Discharge Instructions & Follow-Up, Angina (DC) Activity/Diet/Wound Care/Special Instructions: Please take your medications as prescribed As we discussed, your outside the withdrawal phase, please refrain from using alcohol. Check herself into rehab if needed. Please have repeat blood work in 3 days, prescription given to you Please follow up with her primary care provider and [place]ap[place] planning manager within 1 week Discharge Disposition: HOME SELF-CARE
[2022-03-29] MEDS ORDERED: METOPROLOL TARTRATE 50 MG TAB PO SCH (16:00)
== END 2022-03-29 15:54 | disposition home or self-care (01) | DRG 896 ==
LOC: EC 14:32 → 3SCARD 16:05
PROVIDERS: ADMIT Internal Medicine; ATTEND Internal Medicine
DX: F10.229 Alcohol dependence with intoxication, unspecified (principal); I21.A1 Myocardial infarction type 2; I27.21 Secondary pulmonary arterial hypertension; D69.59 Other secondary thrombocytopenia; I48.91 Unspecified atrial fibrillation; E78.5 Hyperlipidemia, unspecified; G25.81 Restless legs syndrome; F10.239 Alcohol dependence with withdrawal, unspecified; I73.9 Peripheral vascular disease, unspecified; Z28.310 Unvaccinated for COVID-19; E87.6 Hypokalemia; E83.42 Hypomagnesemia; Y90.8 Blood alcohol level of 240 mg/100 ml or more; I10 Essential (primary) hypertension; I08.0 Rheumatic disorders of both mitral and aortic valves; I25.10 Atherosclerotic heart disease of native coronary artery without angina pectoris; R74.01 Elevation of levels of liver transaminase levels; F17.210 Nicotine dependence, cigarettes, uncomplicated; Z71.6 Tobacco abuse counseling; Z79.899 Other long term (current) drug therapy; Z71.41 Alcohol abuse counseling and surveillance of alcoholic; Z95.1 Presence of aortocoronary bypass graft; Z95.5 Presence of coronary angioplasty implant and graft; Z86.59 Personal history of other mental and behavioral disorders; Z91.19 Patient's noncompliance with other medical treatment and regimen
CPT/HCPCS: 36415; 71046; 71275; 80048; 80053; 80061; 80320; 83735; 84484; 85025; 85027; 85379; 85610; 85730; 93005; 93306; 96361; 96372; 96374; 96376; 99285